=== PATIENT | male | born 2000 | race Caucasian/White ===

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

== ENCOUNTER 2020-06-02 09:51 | Emergency (ER) | payer OTHER, SELFPAY ==
[2018-12-24 17:15] VITALS: BMI 26.7
[2020-06-02 09:52] VITALS: BP 121/57; PULSE 89; RESP 16; TEMP 36.1; O2SAT 99; BMI 33.2
--- NOTE | 2020-06-02 10:02 | ED.VIS.GEN ---
History of Present Illness Informant: Patient, Family Onset: Today Context: Sudden Onset Timing: Continuous Quality: Dislocated Location: Jaw Current Severity: Severe Maximum Severity: Severe Worsened by: Nothing Relieved by: Nothing Associated Symptoms: Seizure Narrative: 19-year-old male with a longstanding history of seizure disorder presents to the emergency department with his jaw locked open. Patient had a seizure this morning. It was a tonic-clonic seizure consistent with his previous seizures. However afterwards his jaw has been locked open and he presents with his mom after they have been unable to relieve this. He has had a history of similar symptoms in the past and had to come to the emergency department to have this put back into place. Patient otherwise has been feeling well Prior similar symptoms: Yes Recent Illness/Hospitalization: No <Evan Leonard - Last Filed: 06/02/20 11:17> <Salvatore Acevedo - Last Filed: 06/02/20 13:58> Chief Complaint: Seizure Past Medical History Prior records reviewed: Yes Past Medical History: - - Seizure disorder Surgical History: - - Vagus nerve stimulator Lives: With Family Smoking Status: Never smoker Alcohol: None <Evan Leonard - Last Filed: 06/02/20 11:17> <Salvatore Acevedo - Last Filed: 06/02/20 13:58> - Allergies and Home Meds Allergies/Adverse Reactions: Allergies No Known Allergies Allergy (Verified 06/02/20 09:52) Primary Care Physician: Wang Ren MD [STAFF PHYSICIAN] - Review of Systems All systems negative except as indicated General: Denies: Chills, Fever, Sweats Eyes: Denies: Visual changes - bilaterally, Diplopia ENT: Denies: Rhinorrhea, Sore throat Cardiovascular: Denies: Chest pain, Palpitations Respiratory: Denies: Dyspnea, Cough, Dyspnea on exertion Gastrointestinal: Denies: Abdominal pain, Nausea, Vomiting, Diarrhea, Melena, Hematochezia Genitourinary: Denies: Dysuria, Hematuria, Frequency Musculoskeletal: Denies: Back pain, Extremity Pain Skin: Denies: Rash, Wounds Neurological: Denies: Headache, Weakness, Numbness <Evan Leonard - Last Filed: 06/02/20 11:17> Physical Exam Vital Signs/Narrative: Vital Signs Temp Pulse Resp BP Pulse Ox 06/02/20 09:52 96.9 F L 89 16 121/57 H 99 Inital Vital Signs reviewed: Yes General: Well nourished, Well developed, No Acute Distress Head: Normocephalic, Atraumatic Eyes: Perrl, EOMI ENT: - - Patient has a mandibular dislocation no signs of trauma no bruising redness or swelling of the face Neck: Supple, Nontender Cardiovascular: Regular rate, Regular rhythm, No murmurs Respiratory: No distress, CTA bilaterally, Chest nontender Abdomen: Soft, Nontender, Nondistended, Normal bowel sounds Back: Nontender, Normal Inspection Extremities: Nontender, No edema Skin: Normal color, No rash Neurological: Alert, Oriented x3, Cranial nerves II-XII grossly intact, Normal Strength, Normal Sensation Psychological: Normal affect, Normal Mood <Evan Leonard - Last Filed: 06/02/20 11:17> Vital Signs/Narrative: Vital Signs Pulse Resp BP 06/02/20 11:27 71 16 98/61 <Salvatore Acevedo - Last Filed: 06/02/20 13:58> Diagnostic/Tx/Re-eval - Medical Decision Making Patient presents hemodynamically stable. His jaw was manually reduced by Dr. Acevedo. It was done without difficulty and patient tolerated well. Repeat evaluation patient's doing well he has no complaints jaws in place he is speaking normally and swallowing normally we will discharge him home with Zofran for nausea and have him follow-up with his doctor. <Evan Leonard - Last Filed: 06/02/20 11:17> - Medical Decision Making Patient with a seizure history presents with the inability to move his jaw. 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 Exam reveals patient who is alert and oriented. His mouth is open and he cannot close it. Using downward traction on the back molars of the teeth and anterior traction of the angle of the mandible, is able to reduce the mandible. Patient was given Zofran for nausea. He is feeling improved. He will be discharged to follow-up with his doctor <Salvatore Acevedo - Last Filed: 06/02/20 13:58> ED Disposition <Evan Leonard - Last Filed: 06/02/20 11:17> <Salvatore Acevedo - Last Filed: 06/02/20 13:58> - Plan for ED Patient: Disposition: Home or Assisted Living Diagnosis: Closed dislocation of mandible, Seizure disorder Instructions: ED Dislocation Mandible Prescriptions: Ondansetron [Zofran Odt] 4 mg PO Q8H PRN PRN #10 tab PRN Reason: Nausea Transmission Status: Received by [id number] Referrals: Wang Ren MD [STAFF PHYSICIAN] -
[2020-06-02] MEDS: Ondansetron ODT 4 MG Tablet PO (10:04)
[2020-06-02 11:27] VITALS: BP 98/61; PULSE 71; RESP 16
== END 2020-06-02 11:28 | disposition home or self-care (01) ==
LOC: ED 10:18
PROVIDERS: Emergency Provider Physician Assistant Medical; PCP Family Medicine
DX: S03.00XA Dislocation of jaw, unspecified side, initial encounter (principal); G40.909 Epilepsy, unspecified, not intractable, without status epilepticus; X58.XXXA Exposure to other specified factors, initial encounter; Y93.89 Activity, other specified; Y92.89 Other specified places as the place of occurrence of the external cause; Y99.8 Other external cause status
CPT/HCPCS: 21480; 99282

== ENCOUNTER → 2021-08-22 14:03 | Outpatient (CLI) | payer OTHER, SELFPAY | PROVIDERS: PCP Family Medicine | DX: Z01.818 Encounter for other preprocedural examination (principal) | CPT/HCPCS: 87635; C9803; U0005; U0003 ==

== ENCOUNTER → 2024-02-16 | Outpatient (CLI) | payer OTHER, SELFPAY ==
[2024-02-16 12:37] LABS: Absolute Lymphocyte Count 1.66 X10^3/uL (0.83-4.51); Absolute Neutrophil Count 4.2 X10^3/uL (2.0-7.7); Basophil# 0.02 X10^3/uL; Basophil% 0.3 % (0-1); Eosinophil# 0.07 X10^3/uL; Eosinophils% 1.1 % (0-5); Hematocrit 44.6 % (40-54); Hemoglobin 14.5 g/dL (13.0-16.5); Lymphocyte # 1.66 X10^3/ul (0.83-4.51); Lymphocyte % 25.9 % (19-41); Mean Corp Hgb Conc 32.5 g/dL (32-36); Mean Corpuscular Hgb 29.6 pg (27.0-32.0); Mean Platelet Vol. 9.5 fl (6.2-12.0); Monocyte% 6.2 % (0-10); NRBC Flagged by Analyzer 0 % (0-5); Neutrophil # 4.24 X10^3/uL (2.7-7.7); Platelet Count 236 K/mm3 (150-450); RBC Distribution Width CV 12.3 % (11.6-14.6); RBC Distribution Width SD 40.9 fl (35.1-43.9); White Blood Count 6.4 K/mm3 (4.4-11.0)
[2024-02-16 12:57] LABS: Color, Urine Yellow (Yellow); Glucose, Dipstick Normal (Normal); Ketone-Dipstick Negative (Negative); Leukocyte Esterase-Dipstick Negative /ul (Negative); Nitrite-Dipstick Negative (Negative); Occult Blood-Urine Negative /ul (Negative); Protein-Dipstick Negative (Negative); Urine Bilirubin Dipstick Negative (Negative); Urine Clarity Clear (Clear); Urine Urobilinogen Normal (Normal)
[2024-02-16 12:58] LABS: International Normalized Ratio 1.1; Prothrombin Time (Protime)PT. 14.4 SECONDS (11.7-14.9)
[2024-02-16 12:59] LABS: Partial Thromboplast Time 27.3 Seconds (24.1-36.2)
[2024-02-16 13:43] LABS: ALB/GLOB Ratio 1.3 RATIO (0.9-2.4); AST(SGOT) 15 U/L (15-37); Alanine Aminotransfer ALT/SGPT 31 U/L (16-61); Albumin, Serum 4.4 g/dL (3.2-5.0); Alkaline Phosphatase 52 U/L (45-117); Anion Gap 4 (5-15); BUN 14 mg/dL (7-18); BUN/Creat Ratio 15.9 RATIO (10-20); Calcium,Total 9.5 mg/dL (8.5-10.1); Chloride 104 mmol/L (98-107); Creatinine, Serum 0.88 mg/dL (0.70-1.30); EST Glomerular Filtration Rate 114 mL/min (>60); Est Glom Filt Rate - Afr Amer 138 mL/min (>60); Globulin 3.3 g/dL (2.2-4.2); Glucose 99 mg/dL (74-106); Potassium 4.1 mmol/L (3.5-5.1); Protein, Total 7.7 g/dL (6.4-8.2); Sodium Level 137 mmol/L (136-145)
== END | disposition home or self-care (01) ==
PROVIDERS: PCP Family Medicine
DX: G40.319 Generalized idiopathic epilepsy and epileptic syndromes, intractable, without status epilepticus (principal)
CPT/HCPCS: 36415; 80053; 81002; 85025; 85610; 85730; 87641

== ENCOUNTER 2024-02-27 13:45 | Inpatient (IN) | payer OTHER, SELFPAY ==
[2024-02-27] VITALS (10 sets, daily range): BP systolic 110–129; BP diastolic 62–78; PULSE 73–86; RESP 11–17; TEMP 36.5–36.8; O2SAT 95–100; BMI 26.7; BMI 26.9
[2024-02-27] MEDS: 0.9% Normal Saline (1000mL) 1,000 ML 999 ML IV (13:45)
--- NOTE | 2024-02-27 14:18 | CT_ITS ---
STUDY: CT BRAIN WITHOUT CONTRAST REASON FOR EXAM: Male, 23 years old. LETHARGY RADIATION DOSAGE (If Supplied By Facility): CTDIvol = ( 44.99 ) mGy, DLP = ( 829.85 ) mGycm TECHNIQUE: Transaxial CT imaging of the brain was performed without administration of intravenous contrast material. Individualized dose optimization techniques were used for this CT. The protocol utilizes one or more of the following dose reduction techniques: automated exposure control, adjustment of mA and/or kV according to patient size,and/or use of iterative reconstruction technique. COMPARISON: December 24, 2018 CT abdomen FINDINGS: Normal soft tissue structures. Normal calvarium. Normal size ventricles and extra-axial spaces for the patient''s age. Normal white matter tracts of the cerebral hemispheres. Normal basal ganglia and thalami. Normal brainstem. Normal cerebellum. There is no intracranial hemorrhage. There are no findings of an acute ischemic infarction. Normal visualized paranasal sinuses. CT/Brain/Head without Contrast IMPRESSION: Normal unenhanced CT scan of the brain. Electronically Signed: Joseph Loyola MD at 20:03 EDT ,
--- NOTE | 2024-02-27 14:18 | EKG12_ITS ---
Test Reason : WEAKNESS Blood Pressure : / mmHG Vent. Rate : 070 BPM Atrial Rate : 070 BPM P-R Int : 142 ms QRS Dur : 092 ms QT Int : 348 ms P-R-T Axes : 024 058 052 degrees QTc Int : 375 ms Normal sinus rhythm Nonspecific T wave abnormality Abnormal ECG Confirmed by DAVID FERNANDEZ, MEGAN ([id number]), research editor DARRYL VARGHESE ([id number]) on 03/03/2024 6:09:56 AM Referred By: Confirmed By:POORNIMA HERNANDEZ MD
[2024-02-27] MEDS: Ondansetron 4 MG/2 ML Vial IV (14:27)
[2024-02-27 14:29] LABS: Absolute Lymphocyte Count 1.91 X10^3/uL (0.83-4.51); Absolute Neutrophil Count 12.8 X10^3/uL (2.0-7.7); Basophil# 0.05 X10^3/uL; Basophil% 0.3 % (0-1); Eosinophil# 0.04 X10^3/uL; Eosinophils% 0.3 % (0-5); Hematocrit 43.3 % (40-54); Hemoglobin 14.3 g/dL (13.0-16.5); Lymphocyte # 1.91 X10^3/ul (0.83-4.51); Lymphocyte % 12.2 % (19-41); Mean Corpuscular Hgb 29.9 pg (27.0-32.0); Mean Corpuscular Volume 90.6 fL (80-94); Mean Platelet Vol. 9.9 fl (6.2-12.0); Monocyte# 0.72 X10^3/uL; Monocyte% 4.6 % (0-10); NRBC Flagged by Analyzer 0 % (0-5); Neutrophil # 12.78 X10^3/uL (2.7-7.7); Neutrophil % 81.3 % (47-70); Platelet Count 315 K/mm3 (150-450); Red Blood Count 4.78 M/mm3 (4.6-6.2); White Blood Count 15.7 K/mm3 (4.4-11.0)
[2024-02-27 14:44] LABS: ALB/GLOB Ratio 1.3 RATIO (0.9-2.4); AST(SGOT) 14 U/L (15-37); Alanine Aminotransfer ALT/SGPT 22 U/L (16-61); Albumin, Serum 4.3 g/dL (3.2-5.0); Alkaline Phosphatase 55 U/L (45-117); Anion Gap 11 (5-15); BUN 13 mg/dL (7-18); BUN/Creat Ratio 12.4 RATIO (10-20); Calcium,Total 9.5 mg/dL (8.5-10.1); Chloride 104 mmol/L (98-107); Creatinine, Serum 1.05 mg/dL (0.70-1.30); EST Glomerular Filtration Rate 93 mL/min (>60); Est Glom Filt Rate - Afr Amer 112 mL/min (>60); Estimated Creatinine Clearance 145.01 ml/min; Globulin 3.3 g/dL (2.2-4.2); Glucose 147 mg/dL (74-106); Lipase 22 U/L (13-75); Potassium 2.8 mmol/L (3.5-5.1); Protein, Total 7.6 g/dL (6.4-8.2); Sodium Level 138 mmol/L (136-145)
--- NOTE | 2024-02-27 14:46 | EX.ED.DYSGE1 ---
HPI <CLAUDIA Sanchez - Last Filed: 02/27/24 20:25> History of Present Illness Chief Complaint: Weakness Narrative Narrative: Patient is 23-year-old male with history of grand mal seizures, who in 2017 received a vagal stimulator. Patient was seen at [facility] Thursday which was 4 to 5 days ago, had a battery replaced in the system. For the last 24 hours, patient was having some nausea, vomiting, dizziness. The patient thought he might have a seizure, the mother put the magnet over the battery pack which in her words gives an extra boost. Patient has been extremely weak, dizziness, lightheaded, and is here for evaluation. Denies any fever or chills, blood in stool or vomit. PFSH <CLAUDIA Sanchez - Last Filed: 02/27/24 20:25> PFSH Medical History Seizures Home Medications ?Medication ?Instructions ?Recorded ?Last Taken ?Type lamotrigine 150 mg tablet 225 mg PO BID 11/10/14 Unknown History clobazam 10 mg tablet (Onfi) 10 mg PO BID 04/05/18 Unknown History rufinamide 400 mg tablet (Banzel) 1,600 mg PO BID 04/05/18 Unknown History ondansetron 4 mg disintegrating 4 mg PO Q8H PRN PRN Nausea #10 tabs 06/02/20 Unknown Rx tablet cannabidiol 100 mg/mL oral 250 mg PO BID 02/27/24 Unknown History solution (Epidiolex) clonazepam 0.5 mg tablet 0.5 mg PO BID PRN seizures 02/27/24 Unknown History doxycycline hyclate 100 mg capsule 100 mg PO BID 02/27/24 Unknown History omeprazole 20 mg capsule,delayed 20 mg PO DAILY 02/27/24 Unknown History release oxycodone 5 mg capsule 5 mg PO Q6H PRN PRN pain 02/27/24 Unknown History rufinamide 200 mg tablet (Banzel) 600 mg PO BID 02/27/24 Unknown History Allergy/AdvReac Type Severity Reaction Status Date / Time No Known Allergies Allergy Verified 06/02/20 09:52 Social History Smoking Status: Never smoker ROS <ESTRADA SanchezC - Last Filed: 02/27/24 20:25> ROS ED ROS Narrative Constitutional: Negative for fever, chills, weight loss. Positive for weakness Eyes: Negative for vision loss, vision change, double vision ENT: Negative for any sore throat, ear pain, congestion Cardiovascular: Negative for any chest pain, tightness, palpitations Respiratory: Negative for any cough, sputum production, hemoptysis, dyspnea, dyspnea on exertion, orthopnea Gastrointestinal: Negative for any abdominal pain,diarrhea, constipation, blood in stool, blood in vomit. Positive for nausea, vomiting : Negative for any urinary frequency, dysuria, retention, blood in urine Muscle skeletal: Negative for any neck pain, back pain Neurological: Negative for any headache, syncope, dizziness Skin: Negative for any rashes, itching, abrasions, lacerations Psychiatric: Negative for any depression, anxiety, stress, suicidal ideation, homicidal ideation Hematologic: Negative for any excessive bruising, easy bleeding EXAM <CLAUDIA Sanchez - Last Filed: 02/27/24 20:25> Physical Exam Narrative Exam Narrative: Vital signs reviewed. Patient is alert and orient x 4. However patient appears weak, patient does not open his eyes all the way, patient will not open his mouth although I have a patient does follow commands, is acting appropriate. HEET: Head normocephalic atraumatic, TMs clear bilaterally. Posterior pharynx is clear, moist mucous membranes. Nares clear bilaterally. Pupils are equal round reactive to light. Neck: Supple with no lymphadenopathy or tenderness. No signs of meningismus. Cardiac: Regular rate and rhythm no murmurs gallops or rubs, equal peripheral pulses bilaterally. Respiratory: Lungs clear to auscultation bilaterally. No chest tenderness. Patient does have a vertical 4 cm incision where the battery pack was in place, this looks well-appearing. There is no signs of crepitus, abscess formation, cellulitis Abdomen: Soft, nontender, nondistended. No abdominal bruit or pulsatile masses. No hepatosplenomegaly Extremities: No peripheral edema, no signs of gross trauma or deformity. Active full range of motion of all extremities. Neuro: Cranial nerves II through XII intact, no focal neurological deficits. Skin: Clean dry and intact with no rash, purpura, petechiae, vesicles or pustules. Backs/flank: No CVA tenderness, no midline spinal tenderness, no deformity. Psych: Normal mood and affect. No SI, HI or acute psychosis. Const Vital Signs: 02/27/24 13:47 02/27/24 13:50 02/27/24 15:13 Temperature 97.7 F L Temperature Source Temporal Pulse Rate 73 86 Respiratory Rate 13 17 Respiratory Effort Normal Respiratory Pattern Normal Blood Pressure 114/62 119/70 Blood Pressure Mean 79 86 Pulse Ox 99 100 Oxygen Delivery Method Room Air Room Air 02/27/24 16:00 02/27/24 17:00 02/27/24 18:00 Temperature Temperature Source Pulse Rate 79 80 85 Respiratory Rate 12 17 13 Respiratory Effort Respiratory Pattern Blood Pressure 129/71 H 118/70 110/68 Blood Pressure Mean 90 86 82 Pulse Ox 98 100 100 Oxygen Delivery Method Room Air Room Air 02/27/24 19:00 02/27/24 20:00 Temperature Temperature Source Pulse Rate 74 83 Respiratory Rate 11 L 13 Respiratory Effort Respiratory Pattern Blood Pressure 112/78 119/71 Blood Pressure Mean 89 87 Pulse Ox 100 95 Oxygen Delivery Method Room Air <Dr. Frank Brenner DO - Last Filed: 02/27/24 22:58> Physical Exam Const Vital Signs: 02/27/24 13:47 02/27/24 13:50 02/27/24 15:13 Temperature 97.7 F L Temperature Source Temporal Pulse Rate 73 86 Respiratory Rate 13 17 Respiratory Effort Normal Respiratory Pattern Normal Blood Pressure 114/62 119/70 Blood Pressure Mean 79 86 Pulse Ox 99 100 Oxygen Delivery Method Room Air Room Air 02/27/24 16:00 02/27/24 17:00 02/27/24 18:00 Temperature Temperature Source Pulse Rate 79 80 85 Respiratory Rate 12 17 13 Respiratory Effort Respiratory Pattern Blood Pressure 129/71 H 118/70 110/68 Blood Pressure Mean 90 86 82 Pulse Ox 98 100 100 Oxygen Delivery Method Room Air Room Air 02/27/24 19:00 02/27/24 20:00 Temperature Temperature Source Pulse Rate 74 83 Respiratory Rate 11 L 13 Respiratory Effort Respiratory Pattern Blood Pressure 112/78 119/71 Blood Pressure Mean 89 87 Pulse Ox 100 95 Oxygen Delivery Method Room Air MDM <CLAUDIA Sanchez - Last Filed: 02/27/24 20:25> MDM Lab Data Labs: Laboratory Results - last 24 hr 02/27/24 02/27/24 02/27/24 13:27 14:25 15:49 WBC 15.7 H RBC 4.78 Hgb 14.3 Hct 43.3 MCV 90.6 MCH 29.9 MCHC 33.0 RDW Std Deviation 40.0 RDW Coeff of Harjeet 12.0 Plt Count 315 MPV 9.9 Immature Gran % (Auto) 1.300 H Neut % (Auto) 81.3 H Lymph % (Auto) 12.2 L Gates % (Auto) 4.6 Eos % (Auto) 0.3 Baso % (Auto) 0.3 Absolute Neuts (auto) 12.8 H Absolute Lymphs (auto) 1.91 Nucleated RBC % 0 Sodium 138 Potassium 2.8 L Chloride 104 Carbon Dioxide 23.0 Anion Gap 11 BUN 13 Creatinine 1.05 Estim Creat Clear Calc 145.01 Est GFR (MDRD) Af Amer 112 Est GFR (MDRD) Non-Af 93 BUN/Creatinine Ratio 12.4 Glucose 147 H Lactic Acid 3.1 H* Calcium 9.5 Magnesium 1.8 Total Bilirubin 0.30 AST 14 L ALT 22 Alkaline Phosphatase 55 Total Protein 7.6 Albumin 4.3 Globulin 3.3 Albumin/Globulin Ratio 1.3 Lipase 22 Urine Color Yellow Urine Clarity Clear Urine pH 7.0 Ur Specific [place] 1.010 Urine Protein 30 H Urine Glucose (UA) Normal Urine Ketones Negative Urine Occult Blood 10 H Urine Nitrite Negative Urine Bilirubin Negative Urine Urobilinogen Normal Ur Leukocyte Esterase Negative Urine RBC 0-5 SEEN Urine WBC 0 SEEN Ur Squamous Epith Cells 0 SEEN Urine Bacteria 0 SEEN Urine Mucus 1+ 02/27/24 17:21 WBC RBC Hgb Hct MCV MCH MCHC RDW Std Deviation RDW Coeff of Harjeet Plt Count MPV Immature Gran % (Auto) Neut % (Auto) Lymph % (Auto) Gates % (Auto) Eos % (Auto) Baso % (Auto) Absolute Neuts (auto) Absolute Lymphs (auto) Nucleated RBC % Sodium Potassium Chloride Carbon Dioxide Anion Gap BUN Creatinine Estim Creat Clear Calc Est GFR (MDRD) Af Amer Est GFR (MDRD) Non-Af BUN/Creatinine Ratio Glucose Lactic Acid 1.9 Calcium Magnesium Total Bilirubin AST ALT Alkaline Phosphatase Total Protein Albumin Globulin Albumin/Globulin Ratio Lipase Urine Color Urine Clarity Urine pH Ur Specific [place] Urine Protein Urine Glucose (UA) Urine Ketones Urine Occult Blood Urine Nitrite Urine Bilirubin Urine Urobilinogen Ur Leukocyte Esterase Urine RBC Urine WBC Ur Squamous Epith Cells Urine Bacteria Urine Mucus Radiography Diagnostic Testing: Clinical Impression(s) from Imaging Studies Brain CT 02/27/24 14:18 IMPRESSION: Normal unenhanced CT scan of the brain. Electronically Signed: Joseph Loyola MD at 20:03 EDT , Chest X-Ray 02/27/24 15:00 IMPRESSION: No acute cardiopulmonary abnormality. Electronically Signed: Blake Wolff MD at 15:44 EDT , EKG EKG shows normal sinus rhythm: Attestation: I personally reviewed and interpreted this EKG as follows: Comments: Normal sinus rhythm, rate of 70 bpm, RI 142 ms, QRS duration 92 ms, no acute ST elevation, no acute infarct noted. Treatment and Re-Evaluation :: Differential diagnosis includes however is not limited to: Nausea, vomiting, dehydration, electrolyte abnormality, seizure Patient appears to be in no obvious respiratory distress vital signs are stable. Patient presents to the emergency department with lethargic, nausea, vomiting. Patient will receive IV fluids, IV Zofran, electrolyte electrolytes, liver panel, lipase. Patient also seen a CBC to look for any leukocytosis, anemia. Patient will be reevaluated. EKG was unremarkable CT scan of the brain, chest x-ray will be obtained. All radiologic examinations were read, reviewed by the emergency department attending. From these reads, a plan of care will be put in place. Patient's laboratory values showed an elevated white blood cell count of 15.7, this could be reactive secondary to vomiting. Patient's chemistries showed a hypokalemia with a potassium of 2.8, this was replaced IV as well as orally. Creatinine is 1.05, negative for any transaminitis, lipase was unremarkable, lactic acid was 3.1, patient received 2 L of normal saline. CT head scan of the brain, chest x-ray was negative for any acute process. On reevaluation, the patient was feeling much better. The patient was sitting up, did have 1 other episode of vomitus, patient was redosed with Reglan. Patient again will be reevaluated. Patient is no longer vomiting. Patient was able to get up and ambulate however after a couple states that he felt dizzy like the room was spinning. He also states he felt spacey. Then he went back to the bed. Patient looks much better, repeat lactic acid is 1.9. Patient will be tried on a medication of Valium, if this does not help the patient's dizziness, if he does not walk the patient may need to be admitted to the hospital. <Dr. Frank Brenner, DO - Last Filed: 02/27/24 22:58> [facility] History & Record Review Discussion w/independent historian: Patient and Family Lab Data Attestation: I reviewed the patient's lab results. Labs: Laboratory Results - last 24 hr 02/27/24 02/27/24 02/27/24 13:27 14:25 15:49 WBC 15.7 H RBC 4.78 Hgb 14.3 Hct 43.3 MCV 90.6 MCH 29.9 MCHC 33.0 RDW Std Deviation 40.0 RDW Coeff of Harjeet 12.0 Plt Count 315 MPV 9.9 Immature Gran % (Auto) 1.300 H Neut % (Auto) 81.3 H Lymph % (Auto) 12.2 L [place] % (Auto) 4.6 Eos % (Auto) 0.3 Baso % (Auto) 0.3 Absolute Neuts (auto) 12.8 H Absolute Lymphs (auto) 1.91 Nucleated RBC % 0 Sodium 138 Potassium 2.8 L Chloride 104 Carbon Dioxide 23.0 Anion Gap 11 BUN 13 Creatinine 1.05 Estim Creat Clear Calc 145.01 Est GFR (MDRD) Af Amer 112 Est GFR (MDRD) Non-Af 93 BUN/Creatinine Ratio 12.4 Glucose 147 H Lactic Acid 3.1 H* Calcium 9.5 Magnesium 1.8 Total Bilirubin 0.30 AST 14 L ALT 22 Alkaline Phosphatase 55 Total Protein 7.6 Albumin 4.3 Globulin 3.3 Albumin/Globulin Ratio 1.3 Lipase 22 Urine Color Yellow Urine Clarity Clear Urine pH 7.0 Ur Specific [place] 1.010 Urine Protein 30 H Urine Glucose (UA) Normal Urine Ketones Negative Urine Occult Blood 10 H Urine Nitrite Negative Urine Bilirubin Negative Urine Urobilinogen Normal Ur Leukocyte Esterase Negative Urine RBC 0-5 SEEN Urine WBC 0 SEEN Ur Squamous Epith Cells 0 SEEN Urine Bacteria 0 SEEN Urine Mucus 1+ 02/27/24 17:21 WBC RBC Hgb Hct MCV MCH MCHC RDW Std Deviation RDW Coeff of Harjeet Plt Count MPV Immature Gran % (Auto) Neut % (Auto) Lymph % (Auto) Gates % (Auto) Eos % (Auto) Baso % (Auto) Absolute Neuts (auto) Absolute Lymphs (auto) Nucleated RBC % Sodium Potassium Chloride Carbon Dioxide Anion Gap BUN Creatinine Estim Creat Clear Calc Est GFR (MDRD) Af Amer Est GFR (MDRD) Non-Af BUN/Creatinine Ratio Glucose Lactic Acid 1.9 Calcium Magnesium Total Bilirubin AST ALT Alkaline Phosphatase Total Protein Albumin Globulin Albumin/Globulin Ratio Lipase Urine Color Urine Clarity Urine pH Ur Specific [place] Urine Protein Urine Glucose (UA) Urine Ketones Urine Occult Blood Urine Nitrite Urine Bilirubin Urine Urobilinogen Ur Leukocyte Esterase Urine RBC Urine WBC Ur Squamous Epith Cells Urine Bacteria Urine Mucus Radiography Diagnostic Testing: Clinical Impression(s) from Imaging Studies Brain CT 02/27/24 14:18 IMPRESSION: Normal unenhanced CT scan of the brain. Electronically Signed: Joseph Loyola MD at 20:03 EDT , Chest X-Ray 02/27/24 15:00 IMPRESSION: No acute cardiopulmonary abnormality. Electronically Signed: Blake Wolff MD at 15:44 EDT , Management Discussion w/another healthcare provider: Hospitalist (Dr. Castillo) Treatment and Re-Evaluation :: Differential diagnosis includes however is not limited to: Nausea, vomiting, dehydration, electrolyte abnormality, seizure Patient appears to be in no obvious respiratory distress vital signs are stable. Patient presents to the emergency department with lethargic, nausea, vomiting. Patient will receive IV fluids, IV Zofran, electrolyte electrolytes, liver panel, lipase. Patient also seen a CBC to look for any leukocytosis, anemia. Patient will be reevaluated. EKG was unremarkable CT scan of the brain, chest x-ray will be obtained. All radiologic examinations were read, reviewed by the emergency department attending. From these reads, a plan of care will be put in place. Patient's laboratory values showed an elevated white blood cell count of 15.7, this could be reactive secondary to vomiting. Patient's chemistries showed a hypokalemia with a potassium of 2.8, this was replaced IV as well as orally. Creatinine is 1.05, negative for any transaminitis, lipase was unremarkable, lactic acid was 3.1, patient received 2 L of normal saline. CT head scan of the brain, chest x-ray was negative for any acute process. On reevaluation, the patient was feeling much better. The patient was sitting up, did have 1 other episode of vomitus, patient was redosed with Reglan. Patient again will be reevaluated. Patient is no longer vomiting. Patient was able to get up and ambulate however after a couple states that he felt dizzy like the room was spinning. He also states he felt spacey. Then he went back to the bed. Patient looks much better, repeat lactic acid is 1.9. Patient will be tried on a medication of Valium, if this does not help the patient's dizziness, if he does not walk the patient may need to be admitted to the hospital. I have personally performed a face to face assessment of the patient and have reviewed the HAL Note. I performed a substantive portion of the visit including all aspects of the following. My delgadillo findings include: History is 23-year-old male seizure disorder recently had his battery replaced for his vagal stimulator. Today he notes dizziness/lightheadedness. It is very difficult for him to try to explain what he means by the symptoms. He does tell me the room is spinning. He has had vomiting. He feels globally weak. Exam is no nystagmus. No significant hypertension. Neurovascularly appears intact. Abdomen soft nontender. Medical Decison Making patient given IV fluids. Potassium is low and was replaced. He was able to get up and walk some but then stated he was too dizzy to continue. He received Valium. CT of the brain is negative. He states initially had an elevated lactic acid but that has resolved. At this point patient will most likely need to be admitted to the hospital. Will speak with the hospitalist Discharge Plan Dx/Rx/DC Orders Clinical Impression: Nausea & vomiting, Lactic acidosis, Acute hypokalemia, Dizziness Disposition Disposition: Acute Care Hospital [facility] Discharge Date/Time: 02/27/24 21:32
--- NOTE | 2024-02-27 15:00 | RAD_ITS ---
EXAM: XR CHEST, 1 VIEW CLINICAL INDICATION: cough TECHNIQUE: Frontal view of the chest. COMPARISON: XR Chest dated 12/10/2005 FINDINGS: LUNGS AND PLEURAL SPACES: Normal. No consolidation or edema. No pneumothorax. No effusion. HEART: Normal heart size. MEDIASTINUM: No mediastinal or hilar mass. BONES/JOINTS: No acute abnormality. TUBES, LINES AND DEVICES: Left chest wall battery pack noted attached to a neurostimulator wires extending into the left side of the neck. RAD/Chest 1 View (Portable) IMPRESSION: No acute cardiopulmonary abnormality. Electronically Signed: Blake Wolff MD at 15:44 EDT ,
[2024-02-27] MEDS: Potassium Chloride Oral Tablet 20 MEQ 40 MEQ PO (15:10)
[2024-02-27] MEDS: Potassium Chloride 10mEq/100mL 10 MEQ/100 ML IV.SOLN. 100 MEQ IV BOLUS ×2 (15:10→16:24)
[2024-02-27 15:20] LABS: Lactic Acid 3.1 mmol/L (0.4-1.9)
[2024-02-27 15:21] LABS: Magnesium 1.8 mg/dL (1.6-2.6)
[2024-02-27 16:04] LABS: Bacteria 0 SEEN /hpf (None Seen); Squamous Epithelial Cells - UA 0 SEEN /hpf (0-5); White Blood Cells 0 SEEN /hpf (0-5)
[2024-02-27 16:06] LABS: Color, Urine Yellow (Yellow); Glucose, Dipstick Normal (Normal); Ketone-Dipstick Negative (Negative); Leukocyte Esterase-Dipstick Negative /ul (Negative); Nitrite-Dipstick Negative (Negative); Occult Blood-Urine 10 /ul (Negative); Protein-Dipstick 30 mg/dl (Negative); Urine Bilirubin Dipstick Negative (Negative); Urine Clarity Clear (Clear); Urine Urobilinogen Normal (Normal)
[2024-02-27] MEDS: Metoclopramide 10 MG/2 ML Vial 5 MG IV (16:23)
[2024-02-27 16:43] LABS: Mucous, Urine 1+ /hpf (<or=2+); Red Blood Cells-Urine 0-5 SEEN /hpf (0-5)
[2024-02-27 18:06] LABS: Lactic Acid 1.9 mmol/L (0.4-1.9)
[2024-02-27] MEDS: Acetaminophen 500 MG Tablet 1000 MG PO (18:14)
[2024-02-27 18:33] LABS: Reflex Lactate? Y
[2024-02-27] MEDS: diazePAM 2 MG Tablet 4 MG PO (19:17)
--- NOTE | 2024-02-27 20:21 | PCM.HP.STD ---
HPI - General General Date of Admission: 02/27/24 Date of Service: 02/27/24 Chief Complaint: Nausea, Vomiting and Dizziness. HPI Narrative RONALDO MARTINES, is a 23 M with a past medical history of GERD and epilepsy; with grand mal seizures with history of vagal stimulator (2017) and recent battery change at [facility] approximately 5 days ago on multiple AEDs: including lamotrigine, clobazam, rufinamide, cannabidiol and clonazepam for breakthrough seizure activity who presents to [facility] ER complaining of nausea, vomiting and dizziness. Mr. Martines reports his symptoms began approximately 24 hours prior to admission with a gradual onset of progressively worsening nausea followed by bilious emesis. He also admits to severe dizziness that is made worse with standing and movement. The patient thought he might be having a seizure so his mother put a magnet over his battery pack which gives it an extra boost of power but his symptoms persisted and they decided to come in for further evaluation and treatment. There is no report of fever, chills, abdominal pain, blood in stools or vomit but he does admit to generalized weakness and malaise. His mother also added that he has not had a tonic-clonic seizure for the past 2 years which she attributes to his vagal nerve stimulator. In the ER he was diagnosed with intractable nausea and vomiting complicated by leukocytosis of 15.7 present on admission, hypokalemia of 2.8 mmol/L present on admission and lactic acidosis of 3.1 mmol/L present on admission compounded by dizziness suspicious for vertigo in the setting of known chronic severe epilepsy and he was then admitted to the PCU for ongoing care for stay that is expected to extend beyond 2 midnights. FOR[facility]LY [facility] Medical History Seizures Home Medications ?Medication ?Instructions ?Recorded ?Last Taken ?Type lamotrigine 150 mg tablet 225 mg PO BID 11/10/14 Unknown History clobazam 10 mg tablet (Onfi) 10 mg PO BID 04/05/18 Unknown History rufinamide 400 mg tablet (Banzel) 1,600 mg PO BID 04/05/18 Unknown History ondansetron 4 mg disintegrating 4 mg PO Q8H PRN PRN Nausea #10 tabs 06/02/20 Unknown Rx tablet cannabidiol 100 mg/mL oral 250 mg PO BID 02/27/24 Unknown History solution (Epidiolex) clonazepam 0.5 mg tablet 0.5 mg PO BID PRN seizures 02/27/24 Unknown History doxycycline hyclate 100 mg capsule 100 mg PO BID 02/27/24 Unknown History omeprazole 20 mg capsule,delayed 20 mg PO DAILY 02/27/24 Unknown History release oxycodone 5 mg capsule 5 mg PO Q6H PRN PRN pain 02/27/24 Unknown History rufinamide 200 mg tablet (Banzel) 600 mg PO BID 02/27/24 Unknown History Allergy/AdvReac Type Severity Reaction Status Date / Time No Known Allergies Allergy Verified 06/02/20 09:52 Social History Smoking Status: Never smoker ROS ROS Narrative Review of systems: General: Patient denies fever or chills but he does admit to generalized weakness and malaise as per HPI.. HENT: Denies headache, denies stuffy nose, denies sore throat EYES: Denies changes in vision or discharge from eyes. Resp: Denies cough, denies shortness of breath Cardiac: Denies chest pain, palpitations or heart racing. GI: Patient admits to nausea with bilious emesis but he denies blood in vomit or stool. He also denies abdominal pain, diarrhea or constipation. : Denies changes in urination Extremity: Denies swelling Musculoskeletal: Feels somewhat generally weak and unwell but he denies arthralgias or myalgias. Neuro: Patient denies headache, paresthesias or focal neurologic weakness. Heme: Denies any bleeding or bruising Skin: Denies rashes Psychiatric: No complaints voiced related to uncontrolled depression or anxiety. Endocrine: No polyuria, polydipsia or polyphagia. The rest of the 14 point ROS was negative except for positives in HPI. Vital Signs Vital Signs Vital Signs: 02/27/24 13:47 02/27/24 13:50 02/27/24 15:13 Temperature 97.7 F L Temperature Source Temporal Pulse Rate 73 86 Respiratory Rate 13 17 Respiratory Effort Normal Respiratory Pattern Normal Blood Pressure 114/62 119/70 Blood Pressure Mean 79 86 Pulse Ox 99 100 Oxygen Delivery Method Room Air Room Air 02/27/24 16:00 02/27/24 17:00 02/27/24 18:00 Temperature Temperature Source Pulse Rate 79 80 85 Respiratory Rate 12 17 13 Respiratory Effort Respiratory Pattern Blood Pressure 129/71 H 118/70 110/68 Blood Pressure Mean 90 86 82 Pulse Ox 98 100 100 Oxygen Delivery Method Room Air Room Air 02/27/24 19:00 02/27/24 20:00 Temperature Temperature Source Pulse Rate 74 83 Respiratory Rate 11 L 13 Respiratory Effort Respiratory Pattern Blood Pressure 112/78 119/71 Blood Pressure Mean 89 87 Pulse Ox 100 95 Oxygen Delivery Method Room Air Weight Weight: 237 lb 7.005 oz Body Mass Index (BMI) 26.7 Physical Exam Const alert, oriented x3 and average body habitus Constitutional Narrative: Mild distress noted with obvious malaise. General Appearance: cooperative HEENT normocephalic, head/scalp atraumatic and hearing grossly normal bilaterally HEENT Narrative: Mucous membranes dry. Eyes PERRL and EOMs intact bilaterally Neck no lymphadenopathy and supple Resp normal respiratory effort, no retractions, no use of accessory muscles and clear to auscultation bilaterally Cardio regular rate and regular rhythm GI normal to inspection, nondistended, normoactive bowel sounds, soft to palpation, non-tender and non-distended Extremity normal to inspection and full ROM Skin Skin Narrative: Patient has no evidence of abscess, jaundice or rash. Neuro oriented x3, CN's II-XII intact bilaterally, moves all extremities and no focal motor deficits Sensorium / Orientation: awake, alert, oriented to person, oriented to place and oriented to time Speech: speech normal Psych affect normal Results Medical Records Data Attestation: I reviewed the patient's medical records Lab / Micro Data Attestation: I reviewed the patient's lab results. 02/27/24 13:27 02/27/24 13:27 Labs: Laboratory Results - last 24 hr 02/27/24 13:27: WBC 15.7 H, RBC 4.78, Hgb 14.3, Hct 43.3, MCV 90.6, MCH 29.9, MCHC 33.0, RDW Std Deviation 40.0, RDW Coeff of Harjeet 12.0, Plt Count 315, MPV 9.9, Immature Gran % (Auto) 1.300 H, Neut % (Auto) 81.3 H, Lymph % (Auto) 12.2 L, [place] % (Auto) 4.6, Eos % (Auto) 0.3, Baso % (Auto) 0.3, Absolute Neuts (auto) 12.8 H, Absolute Lymphs (auto) 1.91, Nucleated RBC % 0, Sodium 138, Potassium 2.8 L, Chloride 104, Carbon Dioxide 23.0, Anion Gap 11, BUN 13, Creatinine 1.05, Estim Creat Clear Calc 145.01, Est GFR (MDRD) Af Amer 112, Est GFR (MDRD) Non-Af 93, BUN/Creatinine Ratio 12.4, Glucose 147 H, Calcium 9.5, Magnesium 1.8, Total Bilirubin 0.30, AST 14 L, ALT 22, Alkaline Phosphatase 55, Total Protein 7.6, Albumin 4.3, Globulin 3.3, Albumin/Globulin Ratio 1.3, Lipase 22 02/27/24 14:25: Lactic Acid 3.1 H* 02/27/24 15:49: Urine Color Yellow, Urine Clarity Clear, Urine pH 7.0, Ur Specific [place] 1.010, Urine Protein 30 H, Urine Glucose (UA) Normal, Urine Ketones Negative, Urine Occult Blood 10 H, Urine Nitrite Negative, Urine Bilirubin Negative, Urine Urobilinogen Normal, Ur Leukocyte Esterase Negative, Urine RBC 0-5 SEEN, Urine WBC 0 SEEN, Ur Squamous Epith Cells 0 SEEN, Urine Bacteria 0 SEEN, Urine Mucus 1+ 02/27/24 17:21: Lactic Acid 1.9 Imaging Radiology Impression Brain CT 02/27/24 14:18 IMPRESSION: Normal unenhanced CT scan of the brain. Electronically Signed: Joseph Loyola MD at 20:03 EDT , Chest X-Ray 02/27/24 15:00 IMPRESSION: No acute cardiopulmonary abnormality. Electronically Signed: Blake Wolff MD at 15:44 EDT , [facility] Imaging Services [address] [place], [place] [address] Abdomen/Pelvis without Cont MR#: [id number] Acct: [id number] Name: RONALDO MARTINES Rep #: [id number] : 2000 23 From: Abraham Evans DO PCP: Dr. Stevie Potts MD Status: ADM IN Study: Abdomen/Pelvis without Cont Date of Exam: 02/27/24 Exam# [id number] Ordering Dr: Xavier Michelle DO STUDY: CT ABDOMEN AND PELVIS WITHOUT CONTRAST REASON FOR EXAM: Male, 23 years old. Intractable nausea vomiting. RADIATION DOSAGE (If Supplied By Facility): CTDIvol = ( 13.21 ) mGy, DLP = ( 752.70 ) mGycm TECHNIQUE: Transaxial images were obtained from the dome of the diaphragm to the symphysis pubis without oral contrast, and without intravenous contrast. Sagittal and coronal images were reconstructed. Individualized dose optimization techniques were used for this CT. COMPARISON: None. FINDINGS: The visualized lung bases are unremarkable. The visualized portions of the heart are within normal limits. Normal liver. Normal gallbladder and extrahepatic biliary system. Normal spleen. Normal pancreas. Normal bilateral adrenal glands. Normal right kidney. Normal left kidney. Normal visualized stomach. Normal small intestine. Normal colon. The appendix is not visualized. Normal abdominal aorta. Normal inferior vena cava. Normal retroperitoneum. Normal urinary bladder. Normal abdominal wall. Normal osseous structures. CT/Abdomen/Pelvis without Cont IMPRESSION: Normal unenhanced CT of the abdomen and pelvis. Electronically Signed: Abraham Evans DO at 21:24 EDT , CC: Dr. Xavier Michelle DO; Dr. Stevie Potts MD ~ Ict Analyst: Signed Assessment & Plan Assessment/Plan (1) Nausea & vomiting: QUALIFIERS: Vomiting type: unspecified Qualified Code(s): R11.2 - Nausea with vomiting, unspecified (2) Lactic acidosis: (3) Acute hypokalemia: (4) Dizziness: (5) Seizure disorder: PLAN: Plan 1. Intractable nausea and vomiting with dizziness and signs of vertigo and volume depletion - Admit to PCU. Vigorously volume resuscitate and give IV Zofran as needed for breakthrough symptoms. Give meclizine as needed for breakthrough vertigo symptoms. 2. Hypokalemia of 2.8 mmol/L present on admission due to #1 - Give supplemental KCl and then recheck BMP in a.m. to ensure improvement. 3. Lactic acidosis of 3.1 mmol/L present on admission complicating #1 & #2 - Serialize lactate. Continue supportive care outlined above and monitor for improvement. 4. Epilepsy; with grand mal seizures with history of vagal stimulator (2017) and recent battery change at [facility] approximately 5 days ago on multiple AEDs: including lamotrigine, clobazam, rufinamide, cannabidiol and clonazepam for breakthrough seizure activity - Battery implantation site in the left lateral upper chest looks good with no signs of infection or inflammation. Continue AEDs as previous plus give as needed IV Ativan for breakthrough seizure activity should it occur. 5. GERD - Continue PPI IV until patient is able to reliably tolerate p.o. intake as it is imperative he is able to take his AEDs to prevent possible withdrawal and breakthrough seizure activity. 6. DVT prophylaxis - Lovenox 40 mg subcu daily. Total time: Approximately 55 minutes. Charges/Coding Visit Charges Inpatient E&M: 17846 Init Hosp L2
--- NOTE | 2024-02-27 20:57 | CT_ITS ---
STUDY: CT ABDOMEN AND PELVIS WITHOUT CONTRAST REASON FOR EXAM: Male, 23 years old. Intractable nausea vomiting. RADIATION DOSAGE (If Supplied By Facility): CTDIvol = ( 13.21 ) mGy, DLP = ( 752.70 ) mGycm TECHNIQUE: Transaxial images were obtained from the dome of the diaphragm to the symphysis pubis without oral contrast, and without intravenous contrast. Sagittal and coronal images were reconstructed. Individualized dose optimization techniques were used for this CT. COMPARISON: None. FINDINGS: The visualized lung bases are unremarkable. The visualized portions of the heart are within normal limits. Normal liver. Normal gallbladder and extrahepatic biliary system. Normal spleen. Normal pancreas. Normal bilateral adrenal glands. Normal right kidney. Normal left kidney. Normal visualized stomach. Normal small intestine. Normal colon. The appendix is not visualized. Normal abdominal aorta. Normal inferior vena cava. Normal retroperitoneum. Normal urinary bladder. Normal abdominal wall. Normal osseous structures. CT/Abdomen/Pelvis without Cont IMPRESSION: Normal unenhanced CT of the abdomen and pelvis. Electronically Signed: Abraham Evans DO at 21:24 EDT Reading Location ID and State: [facility] / [place] Tel [phone], Service support ,
[2024-02-27] MEDS: Pantoprazole Sodium 40 MG in 0.9% Normal Saline (100mL MB+) 100 ML 330 MG IV (22:26)
[2024-02-27] MEDS: Potassium Chloride Oral Tablet 20 MEQ 60 MEQ PO (22:36)
[2024-02-27] MEDS: lamoTRIgine 150 MG Tablet 225 MG PO (22:37)
[2024-02-27] MEDS: KCL 20MEQ in 0.9% NS 20 MEQ/1,000 ML IV.SOLN. 150 MEQ IV (22:40)
[2024-02-27] MEDS: Ceftriaxone 1 GM/50 ML BAG IV (22:45)
[2024-02-27] MEDS: CANNABIDIOL 100 MG/ML 250 MG PO (23:52)
[2024-02-27] MEDS: RUFINAMIDE 200 MG 600 MG PO (23:52)
[2024-02-27] MEDS: cloBAZam 10 MG TABLET PO (23:52)
[2024-02-28] VITALS (7 sets, daily range): BP systolic 113–123; BP diastolic 54–79; PULSE 75–86; RESP 16–24; TEMP 36.2–36.5; O2SAT 95–100; BMI 26.9
[2024-02-28] MEDS: KCL 20MEQ in 0.9% NS 20 MEQ/1,000 ML IV.SOLN. 150 MEQ IV ×3 (05:17→17:58)
[2024-02-28 06:47] LABS: Absolute Lymphocyte Count 1.87 X10^3/uL (0.83-4.51); Absolute Neutrophil Count 5.1 X10^3/uL (2.0-7.7); Basophil# 0.02 X10^3/uL; Basophil% 0.3 % (0-1); Eosinophil# 0.05 X10^3/uL; Eosinophils% 0.7 % (0-5); Hemoglobin 12.7 g/dL (13.0-16.5); Lymphocyte # 1.87 X10^3/ul (0.83-4.51); Lymphocyte % 25.1 % (19-41); Mean Corp Hgb Conc 32.6 g/dL (32-36); Mean Corpuscular Volume 92.2 fL (80-94); Mean Platelet Vol. 9.7 fl (6.2-12.0); Monocyte# 0.39 X10^3/uL; Monocyte% 5.2 % (0-10); NRBC Flagged by Analyzer 0 % (0-5); Neutrophil # 5.09 X10^3/uL (2.7-7.7); Neutrophil % 68.3 % (47-70); Platelet Count 221 K/mm3 (150-450); RBC Distribution Width CV 12.3 % (11.6-14.6); RBC Distribution Width SD 41.8 fl (35.1-43.9); Red Blood Count 4.23 M/mm3 (4.6-6.2); White Blood Count 7.5 K/mm3 (4.4-11.0)
[2024-02-28 07:20] LABS: ALB/GLOB Ratio 1.3 RATIO (0.9-2.4); AST(SGOT) 15 U/L (15-37); Alanine Aminotransfer ALT/SGPT 19 U/L (16-61); Albumin, Serum 3.7 g/dL (3.2-5.0); Alkaline Phosphatase 48 U/L (45-117); Anion Gap 8 (5-15); BUN 7 mg/dL (7-18); BUN/Creat Ratio 9.4 RATIO (10-20); Calcium,Total 8.9 mg/dL (8.5-10.1); Chloride 108 mmol/L (98-107); Creatinine, Serum 0.75 mg/dL (0.70-1.30); EST Glomerular Filtration Rate 138 mL/min (>60); Est Glom Filt Rate - Afr Amer 167 mL/min (>60); Estimated Creatinine Clearance 193.05 ml/min; Globulin 2.9 g/dL (2.2-4.2); Glucose 95 mg/dL (74-106); Phosphorus 2.9 mg/dL (2.5-4.9); Potassium 4.2 mmol/L (3.5-5.1); Protein, Total 6.6 g/dL (6.4-8.2); Sodium Level 140 mmol/L (136-145)
[2024-02-28] MEDS: cloBAZam 10 MG TABLET PO ×2 (08:59→21:56)
[2024-02-28] MEDS: RUFINAMIDE 200 MG 600 MG PO ×2 (09:00→21:56)
[2024-02-28] MEDS: lamoTRIgine 150 MG Tablet 225 MG PO ×2 (09:01→21:57)
[2024-02-28] MEDS: Enoxaparin 40 MG/0.4 ML Syringe SC (09:02)
[2024-02-28] MEDS: CANNABIDIOL 100 MG/ML 250 MG PO ×2 (09:02→21:56)
[2024-02-28] MEDS: Pantoprazole Sodium 40 MG in 0.9% Normal Saline (100mL MB+) 100 ML 330 MG IV (09:08)
[2024-02-28] MEDS: 0.9% Saline Lock 10 ML Syringe IV ×2 (14:10→14:51)
[2024-02-28] MEDS: Ondansetron 4 MG/2 ML Vial IV (14:10)
--- NOTE | 2024-02-28 14:36 | PN.HOSP_ITS ---
Reason for Visit Reason for Visit: Diagnoses Acidosis, unspecified (02/27/24) Hypokalemia (02/27/24) Epilepsy, unspecified, not intractable, without status epilepticus (02/27/24) Nausea with vomiting, unspecified (02/27/24) Dizziness and giddiness (02/27/24) Subjective Subjective Patient was seen and examined today, he still states he feels nauseous, nursing states that when he moves his head he becomes more nauseous and vomits. I have decided to give him 1 dose of IV Haldol to see if this will help. I placed the patient on oral Valium but he has been too nauseated to take the Valium. Patient's family is in the room, I told the nurses to relay to them that if he was not feeling better tomorrow that I would have teleneurology do consultation on the patient. I still think the patient's main problem at this point is vertigo and it is causing him to be nauseated and have emesis. Objective Data Objective Data Vital Signs: Vital Signs Temp Pulse Resp BP Pulse Ox O2 Del Method 97.2 F L 86 24 H 123/56 H 99 Room Air 02/28/24 14:10 02/28/24 14:10 02/28/24 14:10 02/28/24 14:10 02/28/24 14:10 02/28/24 14:10 Oxygen Delivery Method Room Air Weight: 103.2 kg Body Mass Index (BMI) 26.9 Intake & Output: Intake and Output for Last 24 Hours 02/26/24 02/27/24 02/28/24 23:59 23:59 23:59 Intake Total 1859 2682.5 / 2682.5 Balance 1859 2682.5 / 2682.5 Lab / Micro Data 02/28/24 06:00 02/28/24 06:00 Labs: Laboratory Results - last 24 hr 02/27/24 13:27: Sodium 138, Potassium 2.8 L, Chloride 104, Carbon Dioxide 23.0, Anion Gap 11, BUN 13, Creatinine 1.05, Estim Creat Clear Calc 145.01, Est GFR (MDRD) Af Amer 112, Est GFR (MDRD) Non-Af 93, BUN/Creatinine Ratio 12.4, Glucose 147 H, Calcium 9.5, Magnesium 1.8, Total Bilirubin 0.30, AST 14 L, ALT 22, Alkaline Phosphatase 55, Total Protein 7.6, Albumin 4.3, Globulin 3.3, Albumin/Globulin Ratio 1.3, Lipase 22 02/27/24 14:25: Lactic Acid 3.1 H* 02/27/24 15:49: Urine Color Yellow, Urine Clarity Clear, Urine pH 7.0, Ur Specific [place] 1.010, Urine Protein 30 H, Urine Glucose (UA) Normal, Urine Ketones Negative, Urine Occult Blood 10 H, Urine Nitrite Negative, Urine Bilirubin Negative, Urine Urobilinogen Normal, Ur Leukocyte Esterase Negative, Urine RBC 0-5 SEEN, Urine WBC 0 SEEN, Ur Squamous Epith Cells 0 SEEN, Urine Bacteria 0 SEEN, Urine Mucus 1+ 02/27/24 17:21: Lactic Acid 1.9 02/28/24 06:00: WBC 7.5, RBC 4.23 L, Hgb 12.7 L, Hct 39.0 L, MCV 92.2, MCH 30.0, MCHC 32.6, RDW Std Deviation 41.8, RDW Coeff of Harjeet 12.3, Plt Count 221, MPV 9.7, Immature Gran % (Auto) 0.400, Neut % (Auto) 68.3, Lymph % (Auto) 25.1, [place] % (Auto) 5.2, Eos % (Auto) 0.7, Baso % (Auto) 0.3, Absolute Neuts (auto) 5.1, Absolute Lymphs (auto) 1.87, Nucleated RBC % 0, Sodium 140, Potassium 4.2, C hloride 108 H, Carbon Dioxide 24.0, Anion Gap 8, BUN 7, Creatinine 0.75, Estim Creat Clear Calc 193.05, Est GFR (MDRD) Af Amer 167, Est GFR (MDRD) Non-Af 138, BUN/Creatinine Ratio 9.4 L, Glucose 95, Calcium 8.9, Phosphorus 2.9, Magnesium 2.0, Total Bilirubin 0.30, AST 15, ALT 19, Alkaline Phosphatase 48, Total Protein 6.6, Albumin 3.7, Globulin 2.9, Albumin/Globulin Ratio 1.3 Radiography Diagnostic Testing: Radiology Impression Brain CT 02/27/24 14:18 IMPRESSION: Normal unenhanced CT scan of the brain. Electronically Signed: Joseph Loyola MD at 20:03 EDT , Chest X-Ray 02/27/24 15:00 IMPRESSION: No acute cardiopulmonary abnormality. Electronically Signed: Blake Wolff MD at 15:44 EDT , Abdomen/Pelvis CT 02/27/24 20:57 IMPRESSION: Normal unenhanced CT of the abdomen and pelvis. Electronically Signed: Abraham Evans DO at 21:24 EDT , Physical Exam Const alert, oriented x3 and no apparent distress Constitutional Narrative: Patient appears uncomfortable due to nausea General Appearance: cooperative, well kempt and well developed Orientation / Consciousness: awake, oriented to person, oriented to place and oriented to time HEENT normocephalic, head/scalp atraumatic and moist oral mucous membranes Eyes PERRL, EOMs intact bilaterally and conjunctivae normal Neck supple, no JVD, thyroid normal and no carotid bruits General: trachea midline Resp normal respiratory effort, no retractions, no use of accessory muscles and clear to auscultation bilaterally Auscultation: Negative for rales, rhonchi or wheezes Cardio regular rate, regular rhythm, S1 normal heart sound, S2 normal heart sound, no murmurs, no rub and no gallops GI normal to inspection, nondistended, normoactive bowel sounds, soft to palpation, non-tender and non-distended Extremity no clubbing, cyanosis or edema Skin no rashes or lesions noted General Skin Exam: no breakdown Neuro oriented x3, CN's II-XII intact bilaterally, moves all extremities, no focal motor deficits and no sensory deficits noted Sensorium / Orientation: awake and alert Speech: speech normal Psych affect normal Assessment & Plan Assessment/Plan (1) Dizziness: PLAN: Plan 1. Vertigo with intractable nausea and vomiting-again I have elected to try Haldol for the patient's nausea, I also placed him on Valium to see if this would help the vertigo. #2 hypokalemia-patient is currently receiving fluids with potassium supplementation, his potassium this morning was 4.2. #3 chronic seizure disorder-patient has a vagal stimulator and is on oral seizure medications. Total clinical time spent by myself addressing the patient's medical issues, reviewing all of his data, and collaborating with patient's care team: 35 minutes Charges/Coding Visit Charges Inpatient E&M: 37022 Subs Hosp L2
[2024-02-28] MEDS: Haloperidol Lactate 5 MG/ML Vial 1 MG IV (14:51)
[2024-02-28] MEDS: Meclizine HCl 25 MG Tablet PO (21:56)
[2024-02-28] MEDS: Acetaminophen 325 MG Tablet 650 MG PO (21:56)
[2024-02-28] MEDS: diazePAM 5 MG Tablet PO (21:56)
[2024-02-28] MEDS: Ceftriaxone 1 GM/50 ML BAG IV (21:57)
[2024-02-29] MEDS: KCL 20MEQ in 0.9% NS 20 MEQ/1,000 ML IV.SOLN. 150 MEQ IV ×2 (00:45→07:51)
[2024-02-29 03:18] VITALS: BMI 26.9
[2024-02-29 03:57] VITALS: BP 115/69; PULSE 72; RESP 20; TEMP 36.3; O2SAT 98
[2024-02-29] MEDS: diazePAM 5 MG Tablet PO (06:22)
--- NOTE | 2024-02-29 08:55 | DCINST_ITS ---
Discharge Instructions Diet Discharge Diet: No restrictions Activity Discharge Activity: Return to Normal Activity Weight Bearing Status: Full weight bearing Follow Up Care Test Results: Test results from this visit will be discussed in further detail at your follow- up appointment, if applicable. Discharge Plan Admission Admit Date/Time: 02/27/24 20:35 Primary Reason for Your Visit: vertigo Attending Provider: Hubert Cheng Primary Care Provider: Stevie Potts Consulting Providers: Xavier Michelle Discharge Orders/Prescriptions Prescriptions: New diazepam [Valium] 5 mg tablet 5 mg PO TID PRN (Reason: dizziness or vertigo) Qty: 10 0RF Continued lamotrigine 150 MG tablet 225 mg PO BID rufinamide [Banzel] 400 MG tablet 1,600 mg PO BID Rx Instructions: TAKE 4 TABLETS 2 TIMES A DAY clobazam [Onfi] 10 MG tablet 10 mg PO BID ondansetron 4 MG tablet 4 mg PO Q8H PRN PRN (Reason: Nausea) Qty: 10 0RF rufinamide [Banzel] 200 mg tablet 600 mg PO BID Rx Instructions: TAKE 3 TABLETS BY MOUTH 2 TIMNES A DAY. TAKE WITH 400MG TABLETS Epidiolex 100 mg/mL solution 250 mg PO BID oxycodone 5 mg capsule 5 mg PO Q6H PRN PRN (Reason: pain) clonazepam 0.5 mg tablet 0.5 mg PO BID PRN (Reason: seizures) omeprazole 20 mg capsule,delayed release(DR/EC) 20 mg PO DAILY Discontinued doxycycline hyclate 100 mg capsule 100 mg PO BID Referrals / Follow Up: Stevie Potts MD [Primary Care Provider] - Disposition Disposition (needs filled in before D/C Order can be placed): Home, Self Care
--- NOTE | 2024-02-29 09:04 | DS.PCM_ITS ---
Providers Date of Admission: 02/27/24 Date of Discharge: 02/29/24 Primary Care Physician: Dr. Stevie Potts MD Reason For Visit: VIRAL GASTROENTERITIS WITH INTRACTABLE NAUSEA AND Diagnosis Discharge Diagnosis (1) Dizziness: Status: Acute Code(s): R42 - Dizziness and giddiness Plan 1. Vertigo with intractable nausea and vomiting-again I have elected to try Haldol for the patient's nausea, I also placed him on Valium to see if this would help the vertigo. #2 hypokalemia #3 chronic seizure disorder-patient has a vagal stimulator and is on oral seizure medications. Total clinical time spent by myself addressing the patient's medical issues, reviewing all of his data, and collaborating with patient's care team: 35 minutes Medications at Discharge Home Medications lamotrigine 150 mg tablet 225 mg PO BID seizures 11/10/14 clobazam 10 mg tablet (Onfi) 10 mg PO BID seizures 04/05/18 rufinamide 400 mg tablet (Banzel) 1,600 mg PO BID seizures 04/05/18 ondansetron 4 mg disintegrating tablet 4 mg PO Q8H PRN PRN Nausea #10 tabs 06/02/20 cannabidiol 100 mg/mL oral solution (Epidiolex) 250 mg PO BID seizures 02/27/24 clonazepam 0.5 mg tablet 0.5 mg PO BID PRN seizures 02/27/24 omeprazole 20 mg capsule,delayed release 20 mg PO DAILY reflux 02/27/24 oxycodone 5 mg capsule 5 mg PO Q6H PRN PRN pain 02/27/24 rufinamide 200 mg tablet (Banzel) 600 mg PO BID seizures 02/27/24 diazepam 5 mg tablet (Valium) 5 mg PO TID PRN dizziness or vertigo #10 tabs 02/29/24 Hospital Course Operations None Procedures None Summary of Care Provided Minutes Spent on Discharge: 30 Hospital Course: This 23-year-old white male was seen in the emergency room at [facility] complaints of dizziness along with nausea and vomiting. Workup in the emergency room included a CBC which showed an elevated white count of 15.7, patient had hypokalemia with potassium of 2.8, CT scan of the brain and chest x- ray was negative for any acute process. Patient was feeling somewhat better after IV fluids and IV potassium replacement in the ER but the patient did have another episode of emesis and was given Reglan. Patient complained that he felt as if the room was spinning. Patient was admitted to PCU, IV fluids were administered and patient was given Valium for vertigo, patient improved during his hospitalization. On 02/29/2024, patient was seen and examined: On examination he appeared in good health and spirits. Vital signs as documented. Skin warm and dry and without overt rashes. Neck without JVD, neck was supple, trachea midline, thyroid was normal. Lungs clear bilaterally, normal air movement was noted. Heart exam notable for regular rhythm, normal sounds and absence of murmurs, rubs or gallops. Abdomen unremarkable and without evidence of organomegaly, masses, or abdominal aortic enlargement. Bowel sounds are present, abdomen is not distended. Extremities nonedematous, no cyanosis was noted, no clubbing was noted. Neuro: Cranial nerves II through XII are grossly intact, no focal motor deficits were noted, sensation to light touch and pinprick intact, motor exam 5/5 throughout. Psych: Patient is alert and oriented x3, he does not appear anxious or depressed, he does not appear agitated. Patient appears stable for discharge home on 02/29/2024. Weight / BMI Weight Weight: 103.2 kg Body Mass Index (BMI) 26.9 ABG / Lab / Microbiology Data 02/28/24 06:00 02/28/24 06:00 D/C Instructions Discharge Diet: No restrictions Weight Bearing Status: Full weight bearing Meaningful Use Info Meaningful Use Meaningful Use Diagnoses (Choose all that apply): None applicable Ischemic Stroke Statin Dosing Therapy Reference: STATIN DOSE THERAPY REFERENCE: * Patients > 75 years receive moderate or high dose statin therapy. * Patients 75 years or YOUNGER should receive HIGH intensity statin dose unless contraindicated. You will be required to document reason for non-treatment if statin daily dose does not meet guidelines. HIGH DOSE STATIN THERAPY DAILY Atorvastatin > than or = to 40 mg Rosuvastatin > than or = to 20 mg Amlodipine + Atorvastatin > than or = to 2.5/40 mg Ezetimibe + Simvastatin 10/80 mg Simvastatin 80mg Discharge Plan Admission Admit Date/Time: 02/27/24 20:35 Primary Reason for Your Visit: vertigo Attending Provider: Hubert Cheng Primary Care Provider: Stevie oPtts Consulting Providers: Xavier Michelle Discharge Orders/Prescriptions Prescriptions: New diazepam [Valium] 5 mg tablet 5 mg PO TID PRN (Reason: dizziness or vertigo) Qty: 10 0RF Continued lamotrigine 150 MG tablet 225 mg PO BID rufinamide [Banzel] 400 MG tablet 1,600 mg PO BID Rx Instructions: TAKE 4 TABLETS 2 TIMES A DAY clobazam [Onfi] 10 MG tablet 10 mg PO BID ondansetron 4 MG tablet 4 mg PO Q8H PRN PRN (Reason: Nausea) Qty: 10 0RF rufinamide [Banzel] 200 mg tablet 600 mg PO BID Rx Instructions: TAKE 3 TABLETS BY MOUTH 2 TIMNES A DAY. TAKE WITH 400MG TABLETS Epidiolex 100 mg/mL solution 250 mg PO BID oxycodone 5 mg capsule 5 mg PO Q6H PRN PRN (Reason: pain) clonazepam 0.5 mg tablet 0.5 mg PO BID PRN (Reason: seizures) omeprazole 20 mg capsule,delayed release(DR/EC) 20 mg PO DAILY Discontinued doxycycline hyclate 100 mg capsule 100 mg PO BID Referrals / Follow Up: Stevie Potts MD [Primary Care Provider] - Disposition Disposition (needs filled in before D/C Order can be placed): Home, Self Care Charges/Coding Visit Charges Inpatient E&M: 63736 Disch Hosp
[2024-02-29] MEDS: Pantoprazole Sodium 40 MG in 0.9% Normal Saline (100mL MB+) 100 ML 330 MG IV (09:35)
[2024-02-29] MEDS: Enoxaparin 40 MG/0.4 ML Syringe SC (09:36)
[2024-02-29] MEDS: lamoTRIgine 150 MG Tablet 225 MG PO (09:36)
[2024-02-29] MEDS: cloBAZam 10 MG TABLET PO (09:37)
[2024-02-29] MEDS: RUFINAMIDE 200 MG 600 MG PO (09:38)
[2024-02-29] MEDS: CANNABIDIOL 100 MG/ML 250 MG PO (09:39)
[2024-02-29 09:45] VITALS: BP 125/77; PULSE 95; RESP 18; TEMP 36.7; O2SAT 100
[2024-02-29 12:45] VITALS: BP 116/52; PULSE 95; RESP 16; TEMP 36.8; O2SAT 99
== END 2024-02-29 14:09 | disposition home or self-care (01) | DRG 149 ==
LOC: ED 20:25 → PCU 21:04
PROVIDERS: Nurse Practitioner; Admitting Provider Internal Medicine; Emergency Provider Emergency Medicine; PCP Family Medicine; Visit Provider Internal Medicine
DX: R42 Dizziness and giddiness (principal); E87.20 Acidosis, unspecified; G40.909 Epilepsy, unspecified, not intractable, without status epilepticus; K21.9 Gastro-esophageal reflux disease without esophagitis; E86.9 Volume depletion, unspecified; E87.6 Hypokalemia; R11.2 Nausea with vomiting, unspecified; Z79.899 Other long term (current) drug therapy; Z96.82 Presence of neurostimulator
CPT/HCPCS: 36415; 70450; 71045; 74176; 80053; 81001; 83605; 83690; 83735; 84100; 85025; 93005; 94668; 99252; 99285; J7030; A4216; G0463; J2405

== ENCOUNTER 2024-03-01 18:22 | Emergency (ER) | payer OTHER, SELFPAY ==
[2024-03-01 18:23] VITALS: BP 131/92; PULSE 97; RESP 16; TEMP 36.8; O2SAT 100
--- NOTE | 2024-03-01 18:30 | EKG12_ITS ---
Test Reason : DYSRHYTHMIA Blood Pressure : / mmHG Vent. Rate : 078 BPM Atrial Rate : 078 BPM P-R Int : 130 ms QRS Dur : 096 ms QT Int : 324 ms P-R-T Axes : 026 046 030 degrees QTc Int : 369 ms Normal sinus rhythm with sinus arrhythmia Nonspecific T wave abnormality Abnormal ECG Confirmed by DAVID FERNANDEZ, MEGAN ([id number]), associate editor DARRYL VARGHESE ([id number]) on 03/03/2024 6:30:08 AM Referred By: Confirmed By:POORNIMA HERNANDEZ MD
[2024-03-01 19:49] VITALS: BMI 26.1
--- NOTE | 2024-03-01 20:41 | EX.ED.DYSGE1 ---
HPI History of Present Illness Chief Complaint: Syncope Narrative Narrative: 23-year-old male presenting with lightheadedness and nausea. Patient recently admitted and discharged the day before yesterday for nausea and vomiting which is intractable associated with dizziness which was presumed to be vertigo and patient was doing well with Valium so he was discharged with a prescription. He picked this up. Today has not been able to hold down any food or fluids but he did hold down his seizure medications this morning. States he has not made urine today. Denies fever. States his dizziness is a little bit better and describes his dizziness as his feet falling through the floor. [facility] Medical History Seizures Home Medications ?Medication ?Instructions ?Recorded ?Last Taken ?Type lamotrigine 150 mg tablet 225 mg PO BID seizures 11/10/14 Unknown History clobazam 10 mg tablet (Onfi) 10 mg PO BID seizures 04/05/18 Unknown History rufinamide 400 mg tablet (Banzel) 1,600 mg PO BID seizures 04/05/18 Unknown History ondansetron 4 mg disintegrating 4 mg PO Q8H PRN PRN Nausea #10 tabs 06/02/20 Unknown Rx tablet cannabidiol 100 mg/mL oral 250 mg PO BID seizures 02/27/24 Unknown History solution (Epidiolex) clonazepam 0.5 mg tablet 0.5 mg PO BID PRN seizures 02/27/24 Unknown History omeprazole 20 mg capsule,delayed 20 mg PO DAILY reflux 02/27/24 Unknown History release rufinamide 200 mg tablet (Banzel) 600 mg PO BID seizures 02/27/24 Unknown History diazepam 5 mg tablet (Valium) 5 mg PO TID PRN dizziness or 02/29/24 Unknown Rx vertigo #15 tabs Allergy/AdvReac Type Severity Reaction Status Date / Time No Known Allergies Allergy Verified 03/01/24 18:25 Social History Smoking Status: Never smoker EXAM Physical Exam Const Vital Signs: 03/01/24 18:23 03/01/24 20:59 03/01/24 20:59 Temperature 98.2 F Temperature Source Temporal Pulse Rate 97 77 Pulse Rate [Lying] Pulse Rate [Sitting (for 1 minute prior to obtaining)] Pulse Rate [Standing (for 1 minute prior to obtaining)] Respiratory Rate 16 16 Blood Pressure 131/92 H 124/85 H Blood Pressure [Lying] Blood Pressure [Sitting (for 1 minute prior to obtaining)] Blood Pressure Mean 105 98 Blood Pressure Mean [Lying] Blood Pressure Mean [Sitting (for 1 minute prior to obtaining)] Pulse Ox 100 100 99 Oxygen Delivery Method Room Air Room Air Room Air 03/01/24 21:37 03/01/24 22:00 Temperature Temperature Source Pulse Rate 78 Pulse Rate [Lying] 79 Pulse Rate [Sitting (for 1 minute prior to obtaining)] 87 Pulse Rate [Standing (for 1 minute prior to obtaining)] 95 Respiratory Rate 14 Blood Pressure 127/80 H Blood Pressure [Lying] 114/75 Blood Pressure [Sitting (for 1 minute prior to obtaining)] 130/78 H Blood Pressure Mean 95 Blood Pressure Mean [Lying] 88 Blood Pressure Mean [Sitting (for 1 minute prior to obtaining)] 95 Pulse Ox 100 Oxygen Delivery Method Room Air Positive well nourished General Appearance ED: NAD HEENT Reports moist mucous membranes Eyes PERRL and EOMs intact bilaterally Chest Wall inspection of chest normal Resp normal respiratory effort Auscultation: Negative for rales, rhonchi or wheezes Cardio regular rate and regular rhythm GI normal to inspection, nondistended, normoactive bowel sounds Neuro oriented x3 and CN's II-XII intact bilaterally Sensorium / Orientation: alert Motor Exam: strength 5/5 throughout Psych mental status grossly normal Skin no rashes or lesions noted MDM MDM MDM Narrative Medical decision making narrative: Patient presenting with lightheadedness and nausea. He states he was sent home with Valium but did not receive any nausea medicine. He is unable to hold down his Valium today because of this. Patient was able to hold down his seizure meds earlier. He has not made any urine today. Will obtain a CBC to assess white blood cell count, hemoglobin, platelets. BMP to assess renal function, electrolytes, glucose. Due to the lightheadedness I will obtain an EKG and high-sensitivity troponin. Patient will have orthostatic vital signs obtained. Once these are done I will order IV fluids. Patient was unable to complete orthostatic vital signs because he was too lightheaded. His blood pressure however went from 114/75 lying initially to 130/78 sitting. He could not tolerate standing to have the blood pressure checked. CBC was obtained and his white blood cell count is 9.3. Hemoglobin 14.8. Platelets of 254. Renal function and electrolytes are normal. High-sensitivity troponin less than 3. EKG sinus rhythm at 78/min and without evidence of ischemia. Patient initially given Zofran but after orthostatic vitals were performed he became nauseous again. He is treated with cyclic vomiting cocktail. On reevaluation he states he still feels queasy. He still little lightheaded in bed but unable to get up and ambulate. Discussed case with [facility] and patient was accepted by Dr. Soriano ER to ER for evaluation as this is likely has something to do with his stimulator. Patient minimal to this. Impression: 1. Lightheadedness 2. Near syncope 3. Nausea/vomiting Lab Data Attestation: I reviewed the patient's lab results. Labs: Laboratory Results - last 24 hr 03/01/24 03/01/24 20:55 23:33 WBC 9.3 RBC 4.90 Hgb 14.8 Hct 43.9 MCV 89.6 MCH 30.2 MCHC 33.7 RDW Std Deviation 39.4 RDW Coeff of Harjeet 11.9 Plt Count 254 MPV 9.0 Immature Gran % (Auto) 0.500 Neut % (Auto) 68.2 Lymph % (Auto) 25.0 Hamilton % (Auto) 5.9 Eos % (Auto) 0.1 Baso % (Auto) 0.3 Absolute Neuts (auto) 6.3 Absolute Lymphs (auto) 2.32 Nucleated RBC % 0 Sodium 138 Potassium 3.6 Chloride 102 Carbon Dioxide 26.0 Anion Gap 10 BUN 11 Creatinine 0.88 Estim Creat Clear Calc 164.53 Est GFR (MDRD) Af Amer 138 Est GFR (MDRD) Non-Af 114 BUN/Creatinine Ratio 12.5 Glucose 86 Calcium 9.6 Troponin I High Sens 3 Ur Drug Screen Comment Discharge Plan Triage Chief Complaint: Syncope ED Provider: Yung Novoa Dx/Rx/DC Orders Prescriptions: No Action lamotrigine 150 MG tablet 225 mg PO BID rufinamide [Banzel] 400 MG tablet 1,600 mg PO BID Rx Instructions: TAKE 4 TABLETS 2 TIMES A DAY clobazam [Onfi] 10 MG tablet 10 mg PO BID ondansetron 4 MG tablet 4 mg PO Q8H PRN PRN (Reason: Nausea) Qty: 10 0RF rufinamide [Banzel] 200 mg tablet 600 mg PO BID Rx Instructions: TAKE 3 TABLETS BY MOUTH 2 TIMNES A DAY. TAKE WITH 400MG TABLETS Epidiolex 100 mg/mL solution 250 mg PO BID clonazepam 0.5 mg tablet 0.5 mg PO BID PRN (Reason: seizures) omeprazole 20 mg capsule,delayed release(DR/EC) 20 mg PO DAILY diazepam [Valium] 5 mg tablet 5 mg PO TID PRN (Reason: dizziness or vertigo) Qty: 15 0RF Primary Care Provider: Stevie Potts Referrals: Stevie Potts MD [Primary Care Provider] - Print Language: Kinyarwanda
[2024-03-01 20:59] VITALS: BP 124/85; PULSE 77; RESP 16; O2SAT 100; O2SAT 99
[2024-03-01 21:00] LABS: Absolute Lymphocyte Count 2.32 X10^3/uL (0.83-4.51); Absolute Neutrophil Count 6.3 X10^3/uL (2.0-7.7); Basophil# 0.03 X10^3/uL; Basophil% 0.3 % (0-1); Eosinophil# 0.01 X10^3/uL; Eosinophils% 0.1 % (0-5); Hematocrit 43.9 % (40-54); Hemoglobin 14.8 g/dL (13.0-16.5); Lymphocyte # 2.32 X10^3/ul (0.83-4.51); Mean Corp Hgb Conc 33.7 g/dL (32-36); Mean Corpuscular Hgb 30.2 pg (27.0-32.0); Mean Corpuscular Volume 89.6 fL (80-94); Monocyte# 0.55 X10^3/uL; Monocyte% 5.9 % (0-10); NRBC Flagged by Analyzer 0 % (0-5); Neutrophil # 6.32 X10^3/uL (2.7-7.7); Neutrophil % 68.2 % (47-70); Platelet Count 254 K/mm3 (150-450); RBC Distribution Width CV 11.9 % (11.6-14.6); RBC Distribution Width SD 39.4 fl (35.1-43.9); White Blood Count 9.3 K/mm3 (4.4-11.0)
[2024-03-01] MEDS: Ondansetron 4 MG/2 ML Vial IV ×2 (21:01→21:50)
[2024-03-01 21:19] LABS: Anion Gap 10 (5-15); BUN 11 mg/dL (7-18); BUN/Creat Ratio 12.5 RATIO (10-20); Calcium,Total 9.6 mg/dL (8.5-10.1); Chloride 102 mmol/L (98-107); Creatinine, Serum 0.88 mg/dL (0.70-1.30); EST Glomerular Filtration Rate 114 mL/min (>60); Est Glom Filt Rate - Afr Amer 138 mL/min (>60); Estimated Creatinine Clearance 164.53 ml/min; Glucose 86 mg/dL (74-106); Potassium 3.6 mmol/L (3.5-5.1); Sodium Level 138 mmol/L (136-145); Troponin-I HS 3 pg/mL (3.0-78.0)
[2024-03-01 21:37] VITALS: BP 114/75; BP 130/78; PULSE 79; PULSE 87; PULSE 95
[2024-03-01] MEDS: 0.9% Normal Saline (1000mL) 1,000 ML 999 ML IV ×2 (21:50→22:23)
[2024-03-01 22:00] VITALS: BP 127/80; PULSE 78; RESP 14; O2SAT 100
[2024-03-01] MEDS: Famotidine 200 MG/20 ML MDV 20 MG in 0.9% Normal Saline (Pres. free 8 ML 300 MG IV (22:20)
[2024-03-02] VITALS: BP 123/79; PULSE 83; RESP 14; O2SAT 99
[2024-03-02 00:21] LABS: Amphetamine Urine NEGATIVE (<1000 ng/mL); Barbiturate Urine NEGATIVE (< 200 ng/mL); Benzodiazepine Urine POSITIVE (< 200 ng/mL); Cocaine Urine NEGATIVE (< 300 ng/mL); Ecstacy Urine NEGATIVE (< 500 ng/mL); Methadone Urine NEGATIVE (< 300 ng/mL); Opiates Urine NEGATIVE (< 300 ng/mL); PCP Urine NEGATIVE (< 25 ng/mL); THC Urine POSITIVE (< 50 ng/mL); Vista UDS pH Range 6
[2024-03-02 02:00] VITALS: BP 115/76; PULSE 85; RESP 16; O2SAT 100
[2024-03-02 04:00] VITALS: BP 117/77; PULSE 68; RESP 17; O2SAT 99
[2024-03-02 05:50] VITALS: BP 91/65; PULSE 123; RESP 16; TEMP 36.2; O2SAT 100
[2024-03-02 06:00] VITALS: BP 119/74; PULSE 68; RESP 12; O2SAT 100
== END 2024-03-02 06:58 | disposition short-term general hospital (02) ==
PROVIDERS: Emergency Provider Student in an Organized Health Care Education/Training Program; PCP Family Medicine; Visit Provider Student in an Organized Health Care Education/Training Program
DX: R55 Syncope and collapse (principal); R11.2 Nausea with vomiting, unspecified; R42 Dizziness and giddiness
CPT/HCPCS: 80048; 80307; 84484; 85025; 93005; 96365; 96375; 96376; 99285; A4216; J2405

== ENCOUNTER → 2024-03-22 | Outpatient (CLI) | payer OTHER, SELFPAY ==
[2024-03-24 17:08] LABS: Lamotrigine (Lamictal) Level 3.8 ug/mL (2.0-20.0)
== END | disposition home or self-care (01) ==
PROVIDERS: PCP Family Medicine
DX: G40.319 Generalized idiopathic epilepsy and epileptic syndromes, intractable, without status epilepticus (principal)
CPT/HCPCS: 36415; 82542

== ENCOUNTER 2024-05-02 10:14 | Emergency (ER) | payer OTHER, SELFPAY ==
[2024-05-02] VITALS (7 sets, daily range): BP systolic 110–138; BP diastolic 62–89; PULSE 65–87; RESP 14–21; TEMP 36.4–36.5; O2SAT 98–100; BMI 28.0
--- NOTE | 2024-05-02 10:43 | EX.ED.DYSGE1 ---
HPI History of Present Illness Chief Complaint: Other, Pain/Inj Informant: patient Onset/Context/Timing Onset: Today Context: Sudden Onset Timing: Continuous Quality: Aching Location: Bilateral TMJs Worsened by: Nothing Relieved by: Nothing Narrative Narrative: Patient presents with jaw pain that began today. Patient states he was yawning and felt his jaw dislocate. Patient states this has happened twice in the past. Patient states the pain began rather suddenly. Patient describes it as aching. Patient states that it is over the TMJs bilaterally. Patient states nothing makes it better and nothing makes it worse. Patient denies any difficulty breathing or difficulty swallowing. Prior similar symptoms: Yes PFSH PFS Medical History (Updated 05/02/24 @ 12:[address] Charlie Low, ) Acute hypokalemia Lactic acidosis Nausea & vomiting Seizures Home Medications ?Medication ?Instructions ?Recorded ?Last Taken ?Type lamotrigine 150 mg tablet 225 mg PO BID seizures 11/10/14 Unknown History clobazam 10 mg tablet (Onfi) 10 mg PO BID seizures 04/05/18 Unknown History rufinamide 400 mg tablet (Banzel) 1,600 mg PO BID seizures 04/05/18 Unknown History ondansetron 4 mg disintegrating 4 mg PO Q8H PRN PRN Nausea #10 tabs 06/02/20 Unknown Rx tablet cannabidiol 100 mg/mL oral 250 mg PO BID seizures 02/27/24 Unknown History solution (Epidiolex) clonazepam 0.5 mg tablet 0.5 mg PO BID PRN seizures 02/27/24 Unknown History omeprazole 20 mg capsule,delayed 20 mg PO DAILY reflux 02/27/24 Unknown History release rufinamide 200 mg tablet (Banzel) 600 mg PO BID seizures 02/27/24 Unknown History diazepam 5 mg tablet (Valium) 5 mg PO TID PRN dizziness or 02/29/24 Unknown Rx vertigo #15 tabs Allergy/AdvReac Type Severity Reaction Status Date / Time No Known Allergies Allergy Verified 05/02/24 11:33 Surgical History (Updated 05/02/24 @ 10:[address] Charlie Low, ) S/P placement of VNS (vagus nerve stimulation) device Social History Smoking Status: Never smoker ROS ROS ED Constitutional Constitutional ED: Denies chills or fever(s) Eyes Eyes: Denies blurry vision or change in vision ENT ENT ED: Denies rhinorrhea or sore throat Cardiovascular Cardiovascular: Denies chest pain or palpitations Respiratory/Chest Respiratory/Chest: Denies cough or dyspnea Gastrointestinal Gastrointestinal: Denies nausea or vomiting Genitourinary Genitourinary ED: Denies dysuria or hematuria Musculoskeletal Musculoskeletal: Denies back pain or neck pain Integumentary Denies abscess or rash Neurologic Neurologic: Denies headache(s) or weakness Allergic/Immunologic Allergic/Immunologic ED: Denies mouth swelling or urticaria EXAM Physical Exam Const Vital Signs: 05/02/24 10:15 05/02/24 10:50 05/02/24 11:00 Temperature 97.6 F L 97.7 F L Temperature Source Temporal Pulse Rate 87 75 Pulse Rate [1 (Initial Baseline)] 75 Pulse Rate [2] 65 Pulse Rate [3] 76 Respiratory Rate 16 17 Respiratory Rate [1 (Initial Baseline)] 21 H Respiratory Rate [2] 18 Respiratory Rate [3] 14 Blood Pressure 138/89 H 131/83 H Blood Pressure [1 (Initial Baseline)] 117/62 Blood Pressure [2] 123/69 H Blood Pressure [3] 110/72 Blood Pressure Mean 105 Pulse Ox 100 100 Oxygen Delivery Method Room Air Room Air Oxygen Delivery Method [1 (Initial Baseline)] Room Air Oxygen Delivery Method [2] Nasal Cannula Oxygen Delivery Method [3] Nasal Cannula Oxygen Flow Rate (L/min) [2] 2 Oxygen Flow Rate (L/min) [3] 2 Positive well nourished and well developed General Appearance ED: well developed and NAD HEENT Reports moist mucous membranes HEENT Narrative: There is tenderness over the TMJ sites bilaterally. There is pain with attempted closing of the jaw. There is no edema or ecchymosis. Neck supple and no JVD Neuro oriented x3, CN's II-XII intact bilaterally and no sensory deficits noted Sensorium / Orientation: alert Motor Exam: strength 5/5 throughout Psych mental status grossly normal MDM MDM MDM Narrative Medical decision making narrative: Patient was advised that this is most likely a TMJ dislocation. Patient was advised that this would need to be reduced under conscious sedation. Patient was advised of the risks and benefits of sedation. Patient is agreeable with this. Patient was given opportunity ask questions. Patient had no further questions. Patient was placed on continuous cardiac and pulse oximeter monitors. Patient was examined 60 mg of propofol. After adequate sedation, the mandible was reduced. Patient tolerated the procedure well. Patient did have a brief episode of hypoxia that improved after taking deep breaths. Patient felt better after the procedure. Patient was instructed to take Tylenol or ibuprofen as needed for pain. Patient was instructed to follow-up with his primary care physician in 5 to 7 days. Patient understood and was agreeable with the plan. All questions were answered. Procedures Procedural Sedation 1 (Initial Baseline): Consent Signed: Yes Any Problems With Anesthesia: No You/Your family experience fever (hyperthermia) w/anesthesia: No Sedation medication: Propofol Dose: 60 Route: IV Maliampati Score: Class I ASA Classification: I Discharge Plan Triage Chief Complaint: Other, Pain/Inj ED Provider: Charlie Low Dx/Rx/DC Orders Clinical Impression: Closed dislocation of mandible, Seizure disorder Instructions: ED Jaw Dislocation Prescriptions: No Action lamotrigine 150 MG tablet 225 mg PO BID rufinamide [Banzel] 400 MG tablet 1,600 mg PO BID Rx Instructions: TAKE 4 TABLETS 2 TIMES A DAY clobazam [Onfi] 10 MG tablet 10 mg PO BID ondansetron 4 MG tablet 4 mg PO Q8H PRN PRN (Reason: Nausea) Qty: 10 0RF rufinamide [Banzel] 200 mg tablet 600 mg PO BID Rx Instructions: TAKE 3 TABLETS BY MOUTH 2 TIMNES A DAY. TAKE WITH 400MG TABLETS Epidiolex 100 mg/mL solution 250 mg PO BID clonazepam 0.5 mg tablet 0.5 mg PO BID PRN (Reason: seizures) omeprazole 20 mg capsule,delayed release(DR/EC) 20 mg PO DAILY diazepam [Valium] 5 mg tablet 5 mg PO TID PRN (Reason: dizziness or vertigo) Qty: 15 0RF Primary Care Provider: Stevie Potts Referrals: Stevie Potts MD [Primary Care Provider] - 5-7 Days Print Language: Khmer Disposition Disposition: Home, Self Care
[2024-05-02] MEDS: Propofol 200 MG/20 ML Vial IV BOLUS (11:35)
== END 2024-05-02 12:26 | disposition home or self-care (01) ==
PROVIDERS: Emergency Provider Emergency Medicine; PCP Family Medicine; Visit Provider Emergency Medicine
DX: S03.00XA Dislocation of jaw, unspecified side, initial encounter (principal); G40.909 Epilepsy, unspecified, not intractable, without status epilepticus; R09.02 Hypoxemia; X58.XXXA Exposure to other specified factors, initial encounter
CPT/HCPCS: 21480; 99284; A4216

== ENCOUNTER → 2024-07-04 | Outpatient (CLI) | payer OTHER, SELFPAY ==
--- NOTE | 2024-07-04 11:15 | RAD_ITS ---
STUDY: X-RAY - CERVICAL SPINE REASON FOR EXAM: Male, 23 years old. Generalized idiopathic epilepsy and epileptic syndromes. TECHNIQUE: 5 view(s) of the cervical spine were obtained on 6 images. COMPARISON: None FINDINGS: Normal anterior atlantoaxial articulation. Normal odontoid process. Normal cervical lordosis. Normal vertebral bodies and endplates. Normal disc space heights. Normal visualized intervertebral neuroforamina. Postsurgical changes in the lower neck. RAD/Cerv Spine 4 or 5 Views IMPRESSION: No significant abnormality of the cervical spine. Electronically Signed: Edgard Chin MD at 12:21 EDT ,
== END | disposition home or self-care (01) ==
LOC: RAD 11:02
PROVIDERS: PCP Family Medicine
DX: G40.319 Generalized idiopathic epilepsy and epileptic syndromes, intractable, without status epilepticus (principal)
CPT/HCPCS: 72050

== ENCOUNTER → 2024-09-20 | Outpatient (CLI) | payer OTHER, SELFPAY ==
[2024-09-20 11:53] LABS: Absolute Lymphocyte Count 1.91 X10^3/uL (0.83-4.51); Absolute Neutrophil Count 4.7 X10^3/uL (2.0-7.7); Basophil# 0.05 X10^3/uL; Basophil% 0.7 % (0-1); Eosinophil# 0.04 X10^3/uL; Eosinophils% 0.6 % (0-5); Hemoglobin 15.6 g/dL (13.0-16.5); Lymphocyte # 1.91 X10^3/ul (0.83-4.51); Lymphocyte % 26.6 % (19-41); Mean Corp Hgb Conc 33.2 g/dL (32-36); Mean Corpuscular Hgb 29.5 pg (27.0-32.0); Mean Corpuscular Volume 88.8 fL (80-94); Mean Platelet Vol. 9.2 fl (6.2-12.0); Monocyte# 0.38 X10^3/uL; Monocyte% 5.3 % (0-10); NRBC Flagged by Analyzer 0 % (0-5); Neutrophil # 4.72 X10^3/uL (2.7-7.7); Neutrophil % 65.5 % (47-70); Platelet Count 280 K/mm3 (150-450); RBC Distribution Width CV 12.3 % (11.6-14.6); RBC Distribution Width SD 39.8 fl (35.1-43.9); Red Blood Count 5.29 M/mm3 (4.6-6.2); White Blood Count 7.2 K/mm3 (4.4-11.0)
[2024-09-20 11:57] LABS: Prothrombin Time (Protime)PT. 13.2 SECONDS (11.7-14.9)
[2024-09-20 11:59] LABS: Partial Thromboplast Time 25.9 Seconds (24.1-36.2)
[2024-09-20 12:08] LABS: Anion Gap 4 (5-15); BUN 14 mg/dL (7-18); BUN/Creat Ratio 12.4 RATIO (10-20); Calcium,Total 9.4 mg/dL (8.5-10.1); Chloride 105 mmol/L (98-107); Creatinine, Serum 1.13 mg/dL (0.70-1.30); EST Glomerular Filtration Rate 85 mL/min (>60); Est Glom Filt Rate - Afr Amer 103 mL/min (>60); Glucose 88 mg/dL (74-106); Potassium 3.9 mmol/L (3.5-5.1); Sodium Level 137 mmol/L (136-145)
== END | disposition home or self-care (01) ==
LOC: LAB 11:23
PROVIDERS: PCP Family Medicine
DX: G40.319 Generalized idiopathic epilepsy and epileptic syndromes, intractable, without status epilepticus (principal)
CPT/HCPCS: 36415; 80048; 85025; 85610; 85730; 87641

== ENCOUNTER 2024-10-03 18:01 | Emergency (ER) | payer OTHER, SELFPAY ==
[2024-10-03 18:04] VITALS: BP 120/82; PULSE 88; RESP 18; TEMP 36.8; O2SAT 99; BMI 29.4
--- NOTE | 2024-10-03 18:09 | EKG12_ITS ---
Test Reason : GEN ILL Blood Pressure : */* mmHG Vent. Rate : 80 BPM Atrial Rate : 80 BPM P-R Int : 134 ms QRS Dur : 92 ms QT Int : 322 ms P-R-T Axes : -3 27 28 degrees QTcB Int : 371 ms Normal sinus rhythm with sinus arrhythmia Nonspecific T wave abnormality Abnormal ECG Confirmed by KARL FERNANDEZ, BRIAN ([id number]), editor index JAMIE FARNSWORTH ([id number]) on 10/04/2024 8:04:37 AM Referred By: Confirmed By: BRIAN BARAJAS MD
[2024-10-03 19:02] LABS: Absolute Lymphocyte Count 1.08 X10^3/uL (0.83-4.51); Basophil# 0.02 X10^3/uL; Basophil% 0.2 % (0-1); Hematocrit 44.6 % (40-54); Lymphocyte # 1.08 X10^3/ul (0.83-4.51); Lymphocyte % 8.6 % (19-41); Mean Corp Hgb Conc 33.6 g/dL (32-36); Mean Corpuscular Hgb 29.7 pg (27.0-32.0); Mean Corpuscular Volume 88.3 fL (80-94); Mean Platelet Vol. 9.6 fl (6.2-12.0); Monocyte# 0.43 X10^3/uL; Monocyte% 3.4 % (0-10); NRBC Flagged by Analyzer 0 % (0-5); Neutrophil # 10.97 X10^3/uL (2.7-7.7); Neutrophil % 86.8 % (47-70); Platelet Count 269 K/mm3 (150-450); RBC Distribution Width CV 12.4 % (11.6-14.6); RBC Distribution Width SD 40.4 fl (35.1-43.9); Red Blood Count 5.05 M/mm3 (4.6-6.2); White Blood Count 12.6 K/mm3 (4.4-11.0)
[2024-10-03 19:18] LABS: Anion Gap 9 (5-15); BUN 11 mg/dL (7-18); BUN/Creat Ratio 9.6 RATIO (10-20); Calcium,Total 9.8 mg/dL (8.5-10.1); Chloride 101 mmol/L (98-107); Creatinine, Serum 1.14 mg/dL (0.70-1.30); EST Glomerular Filtration Rate 84 mL/min (>60); Est Glom Filt Rate - Afr Amer 102 mL/min (>60); Estimated Creatinine Clearance 140.34 ml/min; Glucose 136 mg/dL (74-106); Potassium 3.5 mmol/L (3.5-5.1); Sodium Level 137 mmol/L (136-145)
[2024-10-03 20:04] VITALS: BP 124/78; PULSE 85; RESP 16; O2SAT 98
--- NOTE | 2024-10-03 20:56 | CT_ITS ---
STUDY: CT BRAIN WITHOUT CONTRAST REASON FOR EXAM: Male, 23 years old. LEWIS, intermittent blurry vision RADIATION DOSAGE (If Supplied By Facility): CTDIvol = ( 44.99 ) mGy, DLP = ( 846.73 ) mGycm TECHNIQUE: Transaxial CT imaging of the brain was performed without administration of intravenous contrast material. Individualized dose optimization techniques were used for this CT. COMPARISON: February 27, 2024. FINDINGS: Normal soft tissue structures. Normal calvarium. Normal size ventricles and extra-axial spaces for the patient''s age. Normal white matter tracts of the cerebral hemispheres. Normal basal ganglia and thalami. Normal brainstem. Normal cerebellum. There is no intracranial hemorrhage. There are no findings of an acute ischemic infarction. Normal visualized paranasal sinuses. CT/Brain/Head without Contrast IMPRESSION: Normal unenhanced CT scan of the brain. Electronically Signed: Matt Armas MD at 22:02 EST ,
--- NOTE | 2024-10-03 21:09 | EX.ED.DYSGE1 ---
HPI History of Present Illness Chief Complaint: General Illness Narrative Narrative: Chief complaint and HPI: Multiple complaints. 23-year-old male with past medical history of epilepsy with vagus nerve stimulator presents for evaluation of multiple complaints. Patient states that he had surgery on his vagus nerve stimulator on 09/[address] [facility] [address] Melendez. Patient tolerated the surgery well. He states that they needed to replace the cushion. He was discharged home on prophylactic antibiotics with doxycycline. He has been taking these. States he has not been taking his opioids. patient states yesterday he started to develop intermittent headaches and intermittent double visions. He also endorses lightheadedness, decreased appetite, weakness, nausea and vomiting. Endorses symptomatic fevers but has not had a actual fever based on thermometer. He denies any ear pain. Endorses some nasal congestion. Denies any chest pain, shortness of breath, neck pain, abdominal pain, dysuria. Patient states that he had an episode similar event to this in February without a true diagnosis Review of systems: See HPI Medications: As listed on the chart Allergies: As listed on the chart PFSH: Per chart Vital signs: As listed on the chart. Reviewed. Physical exam: Gen: A&O x3, NAD Head: Normocephalic, atraumatic Eyes: No sclera icterus, conjunctiva clear, PERRL, EOMI ENT: TMs clear BL, moist mucous membranes, posterior oropharynx unremarkable, uvula midline, tonsils not enlarged, no tonsillar exudates Neck: Trachea midline, No JVD, Full ROM, No meningismus surgical incision, healing well without any signs of infection CV: RRR, no murmurs, no peripheral edema Resp: Lungs CTA BL, no w/r/c GI: Abd soft, non-distended, non-tender, no r/r/g Musc: Full ROM, no deformity strength was 5 out of 5 in all extremities, Skin: Warm, dry, no rash Neuro: Alert, oriented, grossly intact, sensation intact Psych: Cooperative, appropriate mood and affect [facility] Medical History (Updated 05/10/24 @ 00:00 by Background Daemon) Acute hypokalemia Lactic acidosis Nausea & vomiting Seizures Home Medications ?Medication ?Instructions ?Recorded ?Last Taken ?Type lamotrigine 150 mg tablet 225 mg PO BID seizures 11/10/14 Unknown History clobazam 10 mg tablet (Onfi) 10 mg PO BID seizures 04/05/18 Unknown History rufinamide 400 mg tablet (Banzel) 1,600 mg PO BID seizures 04/05/18 Unknown History ondansetron 4 mg disintegrating 4 mg PO Q8H PRN PRN Nausea #10 tabs 06/02/20 Unknown Rx tablet cannabidiol 100 mg/mL oral 250 mg PO BID seizures 02/27/24 Unknown History solution (Epidiolex) clonazepam 0.5 mg tablet 0.5 mg PO BID PRN seizures 02/27/24 Unknown History omeprazole 20 mg capsule,delayed 20 mg PO DAILY reflux 02/27/24 Unknown History release rufinamide 200 mg tablet (Banzel) 600 mg PO BID seizures 02/27/24 Unknown History diazepam 5 mg tablet (Valium) 5 mg PO TID PRN dizziness or 02/29/24 Unknown Rx vertigo #15 tabs Allergy/AdvReac Type Severity Reaction Status Date / Time No Known Allergies Allergy Verified 10/03/24 18:11 Surgical History (Updated 05/02/24 @ 10:[address] Charlie Low DO) S/P placement of VNS (vagus nerve stimulation) device Social History Smoking Status: Never smoker EXAM Physical Exam Const Vital Signs: 10/03/24 18:04 10/03/24 20:04 10/03/24 21:12 Temperature 98.2 F Temperature Source Oral Pulse Rate 88 85 Respiratory Rate 18 16 Blood Pressure 120/82 H 124/78 H Blood Pressure Mean 94 93 Pulse Ox 99 98 Oxygen Delivery Method Room Air Room Air Room Air 10/03/24 22:04 Temperature Temperature Source Pulse Rate 86 Respiratory Rate 17 Blood Pressure 132/80 H Blood Pressure Mean 97 Pulse Ox 100 Oxygen Delivery Method Room Air MDM MDM MDM Narrative Medical decision making narrative: 23-year-old male with past medical history of epilepsy with vagus nerve stimulator presents for evaluation of multiple complaints. Differential diagnosis includes but not limited to viral illness, COVID-19, influenza, pneumonia, electrolyte abnormality, dehydration, JERRY, UTI, viral gastroenteritis. Labs and imaging ordered. Patient endorses headache and intermittent blurry vision therefore cannot rule out intracranial abnormality therefore head CT ordered. NS bolus, Zofran ordered for symptoms. EKG and chest x-ray reviewed. See below. CBC with mild leukocytosis of 12.6. Patient recently just had surgery and this may be a cause of his leukocytosis. No anemia. CMP relatively unremarkable without JERRY or significant electrolyte abnormality. Troponin unremarkable. Lactic acid elevated at 3. Suspect possible dehydration. Another NS bolus ordered and will recheck lactic. CT head without any acute intracranial abnormality. UA negative for UTI. Urine drug screen positive for benzodiazepines and cannabinoids. COVID, flu, RSV negative. No clear etiology for patient's symptoms at this time except for likely dehydration. On reevaluation, patient states his symptoms have improved. He was able to tolerate water without any difficulty. On further discussion with the patient and his mother. Mother states these are the exact same symptoms that he had last time he was started on doxycycline. His symptoms may be secondary to side effect from doxycycline. Mother was educated to not give the doxycycline this evening and to call the patient's surgeon in the morning to see if his antibiotic could be switched to something different. Mother confirmed understanding. Plan will be for the second NS bolus to be given with repeat lactic. If repeat lactic has improved/resolved plan will be for discharge home and follow-up outpatient with PCP. Mother confirmed understanding. Patient signed out to night physician. EKG: Interpreted by me/EM physician: EKG shows normal sinus rhythm without any acute ischemic changes. Diagnostic: Interpreted by me/EM physician: Chest x-ray without any pneumonia, effusion, cardiomegaly, pneumothorax Impression: 1. Dehydration 2. Nausea and vomiting 3. General malaise Lab Data Labs: Laboratory Results - last 24 hr 10/03/24 10/03/24 10/03/24 18:38 20:56 20:57 WBC 12.6 H RBC 5.05 Hgb 15.0 Hct 44.6 MCV 88.3 MCH 29.7 MCHC 33.6 RDW Std Deviation 40.4 RDW Coeff of Harjeet 12.4 Plt Count 269 MPV 9.6 Immature Gran % (Auto) 1.000 H Neut % (Auto) 86.8 H Lymph % (Auto) 8.6 L Morton % (Auto) 3.4 Eos % (Auto) 0.0 Baso % (Auto) 0.2 Absolute Neuts (auto) 11.0 H Absolute Lymphs (auto) 1.08 Nucleated RBC % 0 Sodium 137 Potassium 3.5 Chloride 101 Carbon Dioxide 26.0 Anion Gap 9 BUN 11 Creatinine 1.14 Estim Creat Clear Calc 140.34 Est GFR (MDRD) Af Amer 102 Est GFR (MDRD) Non-Af 84 BUN/Creatinine Ratio 9.6 L Glucose 136 H Lactic Acid 3.0 H* Calcium 9.8 Troponin I High Sens 4 Urine Color Urine Clarity Urine pH Ur Specific [place] Urine Protein Urine Glucose (UA) Urine Ketones Urine Occult Blood Urine Nitrite Urine Bilirubin Urine Urobilinogen Ur Leukocyte Esterase Urine RBC Urine WBC Ur Squamous Epith Cells Urine Bacteria Urine Mucus Urine Opiates Screen Urine Methadone Screen Ur Barbiturates Screen Ur Phencyclidine Scrn Ur Amphetamines Screen MDMA (Ecstasy) Screen U Benzodiazepines Scrn Urine Cocaine Screen U Cannabinoids Screen Ur Drug Screen Comment 10/03/24 23:02 WBC RBC Hgb Hct MCV MCH MCHC RDW Std Deviation RDW Coeff of Harjeet Plt Count MPV Immature Gran % (Auto) Neut % (Auto) Lymph % (Auto) Morton % (Auto) Eos % (Auto) Baso % (Auto) Absolute Neuts (auto) Absolute Lymphs (auto) Nucleated RBC % Sodium Potassium Chloride Carbon Dioxide Anion Gap BUN Creatinine Estim Creat Clear Calc Est GFR (MDRD) Af Amer Est GFR (MDRD) Non-Af BUN/Creatinine Ratio Glucose Lactic Acid Calcium Troponin I High Sens Urine Color Yellow Urine Clarity Clear Urine pH 8.0 Ur Specific [place] 1.015 Urine Protein 15 H Urine Glucose (UA) Normal Urine Ketones Negative Urine Occult Blood Negative Urine Nitrite Negative Urine Bilirubin Negative Urine Urobilinogen Normal Ur Leukocyte Esterase Negative Urine RBC 0 SEEN Urine WBC 0 SEEN Ur Squamous Epith Cells 0 SEEN Urine Bacteria 0 SEEN Urine Mucus 0 SEEN Urine Opiates Screen NEGATIVE Urine Methadone Screen NEGATIVE Ur Barbiturates Screen NEGATIVE Ur Phencyclidine Scrn NEGATIVE Ur Amphetamines Screen NEGATIVE MDMA (Ecstasy) Screen NEGATIVE U Benzodiazepines Scrn POSITIVE H Urine Cocaine Screen NEGATIVE U Cannabinoids Screen POSITIVE H Ur Drug Screen Comment Radiography Diagnostic Testing: Clinical Impression(s) from Imaging Studies Brain CT 10/03/24 20:56 IMPRESSION: Normal unenhanced CT scan of the brain. Electronically Signed: Matt Armas MD at 22:02 EST Reading Location ID and State: [facility] / [place] Tel [phone], Service support , Chest X-Ray 10/03/24 21:15 IMPRESSION: Normal x-ray examination of the chest. Electronically Signed: Matt Armas MD at 22:18 EST , Discharge Plan Triage Chief Complaint: General Illness ED Provider: Arash Dash Dx/Rx/DC Orders Prescriptions: No Action lamotrigine 150 MG tablet 225 mg PO BID rufinamide [Banzel] 400 MG tablet 1,600 mg PO BID Rx Instructions: TAKE 4 TABLETS 2 TIMES A DAY clobazam [Onfi] 10 MG tablet 10 mg PO BID ondansetron 4 MG tablet 4 mg PO Q8H PRN PRN (Reason: Nausea) Qty: 10 0RF rufinamide [Banzel] 200 mg tablet 600 mg PO BID Rx Instructions: TAKE 3 TABLETS BY MOUTH 2 TIMNES A DAY. TAKE WITH 400MG TABLETS Epidiolex 100 mg/mL solution 250 mg PO BID clonazepam 0.5 mg tablet 0.5 mg PO BID PRN (Reason: seizures) omeprazole 20 mg capsule,delayed release(DR/EC) 20 mg PO DAILY diazepam [Valium] 5 mg tablet 5 mg PO TID PRN (Reason: dizziness or vertigo) Qty: 15 0RF Primary Care Provider: Stevie Potts Referrals: Stevie Potts MD [Primary Care Provider] - Print Language: Macedonian
--- NOTE | 2024-10-03 21:15 | RAD_ITS ---
STUDY: X-RAY CHEST REASON FOR EXAM: Male, 23 years old. Lightheaded TECHNIQUE: PA and lateral COMPARISON: February 27, 2024 FINDINGS: The lungs are clear and expanded. There is no demonstrated pleural abnormality. Normal size heart. Normal mediastinum and pedrito. Normal visualized pulmonary arteries. Normal visualized aortic arch and descending thoracic aorta. Normal visualized thoracic spine. Normal visualized ribs, clavicles, and shoulders. There is no demonstrated abnormality of the visualized soft tissue structures of the upper abdomen. No change since prior exam RAD/Chest PA and Lateral IMPRESSION: Normal x-ray examination of the chest. Electronically Signed: Matt Armas MD at 22:18 EST ,
[2024-10-03] MEDS: Ondansetron 4 MG/2 ML Vial IV (21:46)
[2024-10-03] MEDS: 0.9% Normal Saline (1000mL) 1,000 ML 1000 ML IV ×2 (21:46→23:48)
[2024-10-03 22:04] VITALS: BP 132/80; PULSE 86; RESP 17; O2SAT 100
[2024-10-03 22:12] LABS: Troponin-I HS 4 pg/mL (3.0-78.0)
[2024-10-03 22:19] LABS: Reflex Lactate? Y
[2024-10-03 23:08] LABS: Bacteria 0 SEEN /hpf (None Seen); Mucous, Urine 0 SEEN /hpf (<or=2+); Red Blood Cells-Urine 0 SEEN /hpf (0-5); Squamous Epithelial Cells - UA 0 SEEN /hpf (0-5); White Blood Cells 0 SEEN /hpf (0-5)
[2024-10-03 23:12] LABS: Color, Urine Yellow (Yellow); Glucose, Dipstick Normal (Normal); Ketone-Dipstick Negative (Negative); Leukocyte Esterase-Dipstick Negative /ul (Negative); Nitrite-Dipstick Negative (Negative); Occult Blood-Urine Negative /ul (Negative); Protein-Dipstick 15 mg/dl (Negative); Specific Gravity, Urine 1.015 (1.002-1.030); Urine Bilirubin Dipstick Negative (Negative); Urine Clarity Clear (Clear); Urine Urobilinogen Normal (Normal)
[2024-10-03 23:36] LABS: Amphetamine Urine VISTA NEGATIVE (<1000 ng/mL); Barbiturate Urine VISTA NEGATIVE (< 200 ng/mL); Benzodiazepine Urine VISTA POSITIVE (< 200 ng/mL); Cocaine Urine VISTA NEGATIVE (< 300 ng/mL); Ecstacy Urine VISTA NEGATIVE (< 500 ng/mL); Methadone Urine VISTA NEGATIVE (< 300 ng/mL); PCP Urine VISTA NEGATIVE (< 25 ng/mL); THC Urine VISTA POSITIVE (< 50 ng/mL); Vista UDS pH Range 7
[2024-10-04] VITALS: BP 112/72; PULSE 80; RESP 17; O2SAT 99
[2024-10-04 01:27] LABS: Lactic Acid 1.3 mmol/L (0.4-1.9)
[2024-10-04 02:00] VITALS: BP 117/81; PULSE 80; RESP 18; O2SAT 98
[2024-10-04 02:09] VITALS: BP 117/81; PULSE 82; RESP 17; TEMP 36.6; O2SAT 100
== END 2024-10-04 02:17 | disposition home or self-care (01) ==
PROVIDERS: Emergency Provider Surgery; PCP Family Medicine; Visit Provider Surgery
DX: E86.0 Dehydration (principal); R11.2 Nausea with vomiting, unspecified; R53.1 Weakness; Z79.899 Other long term (current) drug therapy
CPT/HCPCS: 70450; 71046; 80048; 80307; 81001; 83605; 84484; 85025; 87631; 93005; 96374; 99284; A4216; J2405

== ENCOUNTER → 2025-07-05 | Outpatient (CLI) | payer OTHER, MEDICAID, SELFPAY ==
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
[2025-07-05 10:45] VITALS: BP 163/85; PULSE 81; RESP 16; O2SAT 98
[2025-07-05 10:53] VITALS: BP 163/105; PULSE 78; RESP 16; O2SAT 99
[2025-07-05 11:02] VITALS: BP 144/97; PULSE 78; RESP 16; O2SAT 99
[2025-07-05 11:12] VITALS: BP 139/91; PULSE 77; RESP 16; O2SAT 99
[2025-07-05 11:22] VITALS: BP 130/88; PULSE 76; RESP 16; O2SAT 99
[2025-07-05 11:31] VITALS: BP 153/102; PULSE 84; RESP 16; O2SAT 99
== END | disposition home or self-care (01) ==
PROVIDERS: Referring Provider Orthopaedic Surgery Sports Medicine; Visit Provider Orthopaedic Surgery Sports Medicine
DX: M25.561 Pain in right knee (principal)
CPT/HCPCS: 73721